=== PATIENT | female | born 1955 | race Caucasian/White ===

== ENCOUNTER → 2017-07-01 | Outpatient (CLI) | payer OTHER ==
[~2017-07-01] MED LIST: APRACLONIDINE 1% 0.1 ML OPH ONE; ASPI-664 PO; LAMO100T83 PO; LEVO75TA5 PO; METO-448 PO; PHENYLephrine 10% 5 ML OPH ONE; PROPARACAINE 0.5% 15 ML OPH ONE; SIMV40TA3 PO; TROPICAMIDE 1% 3 ML OPH ONE; VENL75TA2 PO
== END | disposition home or self-care (01) ==
LOC: RAD 10:32
PROVIDERS: ATTEND Ophthalmology
DX: H26.9 Unspecified cataract (principal)
CPT/HCPCS: 66821; Z7610

== ENCOUNTER 2017-09-17 23:12 | Emergency (ER) | payer SELFPAY ==
[~2017-09-17] VITALS: Ht 165.1 cm; Wt 79.5 kg
[~2017-09-17 23:12] MED LIST changes: -APRACLONIDINE 1% 0.1 ML OPH ONE; -PHENYLephrine 10% 5 ML OPH ONE; -PROPARACAINE 0.5% 15 ML OPH ONE; -TROPICAMIDE 1% 3 ML OPH ONE
[2017-09-17 23:29] VITALS: Ht 165.1 cm; Wt 79.5 kg
== END 2017-09-18 00:25 | disposition left against medical advice (07) ==
LOC: E/R 23:12
DX: Z53.21 Procedure and treatment not carried out due to patient leaving prior to being seen by health care provider (principal)

== ENCOUNTER 2018-11-30 08:16 | Day surgery (SDC) | payer OTHER ==
[2018-11-30] VITALS (14 sets, daily range): BP systolic 111–154; BP diastolic 51–81; PULSE 57–65; RESP 14–23; Ht 154.9 cm; Wt 89.7 kg
[~2018-11-30] VITALS: Ht 154.9 cm; Wt 89.7 kg
[~2018-11-30 08:16] MED LIST changes: +ASPI-1044 PO; -ASPI-664 PO; +CEFAZOLIN 2 GM/50 ML (PMX) 50 ML IVPB SCH; +LIDOCAINE 2% (SDV) 5 ML INJ ONE; +SOD CHLORIDE 0.9% 1,000 ML IV SCH
[2018-11-30] MEDS ORDERED: CALC500T91 PO (08:48)
[2018-11-30] MEDS ORDERED: INSU100I33 SC (08:48)
[2018-11-30] MEDS ORDERED: LEVO75TA5 PO (08:49)
[2018-11-30] MEDS ORDERED: VENL150C PO (08:52)
[2018-11-30] MEDS ORDERED: CHOL100062 PO (08:52)
[2018-11-30] MEDS ORDERED: ASPI-903 PO (08:53)
[2018-11-30] MEDS ORDERED: FAMO20TA18 PO (08:53)
[2018-11-30] MEDS ORDERED: ATOR40TA68 PO (08:54)
[2018-11-30] MEDS ORDERED: LAMO100T83 PO (08:54)
[2018-11-30] MEDS ORDERED: QUET200T PO (08:55)
[2018-11-30] MEDS ORDERED: GABA300C16 PO (08:55)
[2018-11-30] MEDS ORDERED: METO-448 PO (08:56)
[2018-11-30] MEDS ORDERED: LISI-471 PO (08:56)
[2018-11-30] MEDS ORDERED: BUPIVACAINE 0.25% (MPF) 30 ML INJ ONE (09:46)
--- NOTE | 2018-11-30 09:51 | PREAC ---
Date/Time of Note Date/Time of Note DATE: 11/30/18 TIME: 09:48 Anesthesia Eval and Record Evaluation Time Pre-Procedure Interview DATE: 11/30/18 TIME: 09:48 Age 63 Sex female NPO: 8 hrs Preoperative diagnosis cholelithiasis Planned procedure laparoscopic cholecystectomy Past Medical History Past Medical History: Includes Cardio: HTN, Dyslipidemia, CAD Endo: Diabetes Musculoskeletal: Other (fibromyalgia) Renal: CKD GI: GERD, Hiatal hernia Psych: Bipolar Surgery & Anesthesia Issues No known issue Meds Anticoagulation: No Beta Pranav within 24 hr: Yes Reported Medications Metoprolol Tartrate* (Lopressor*) 25 Mg Tab, 25 MG PO BID, #60 TAB 11/30/18 Lisinopril* (Lisinopril*) 20 Mg Tablet, 20 MG PO DAILY, #30 TAB 11/30/18 Quetiapine Fumarate* (Seroquel*) 200 Mg Tablet, 200 MG PO HS, #30 TAB 11/30/18 Gabapentin* (Gabapentin*) 300 Mg Capsule, 300 MG PO BID, #60 CAP 11/30/18 Atorvastatin* (Atorvastatin*) 40 Mg Tablet, 40 MG PO QHS, #30 TAB 11/30/18 Lamotrigine* (Lamictal*) 100 Mg Tablet, 100 MG PO DAILY, TAB 11/30/18 Aspirin* (Aspirin* Chew) 81 Mg Tab.chew, 81 MG PO DAILY, TAB.CHEW 11/30/18 Famotidine* (Famotidine*) 20 Mg Tablet, 20 MG PO DAILY, #30 TAB 11/30/18 Venlafaxine Hcl* (Effexor XR*) 150 Mg Cap.sr.24h, 150 MG PO DAILY, CAP 11/30/18 Cholecalciferol* (Vitamin D3*) 1,000 Unit Tablet, 2000 UNIT PO DAILY, TAB 11/30/18 Levothyroxine Sodium* (Levothyroxine Sodium*) 75 Mcg Tablet, 75 MCG PO BEFORE BREAKFAST, #30 TAB 11/30/18 Insulin Glargine,Hum.rec.anlog (Basaglar Kwikpen U-100) 100 Unit/1 Ml Insuln.pen, 65-80 UNIT SC BID, EA 11/30/18 Calcium Carbonate (Eerw-Xcw-506) 500 Mg Tablet, 500 MG PO BID, TAB 11/30/18 Discontinued Reported Medications Metoprolol Tartrate* (Lopressor*) 25 Mg Tab, 25 MG PO BID, #60 TAB 09/03/16 Aspirin Delayed Release (Aspirin Delayed Release) 81 Mg Tablet.dr, 81 MG PO DAILY 08/05/14 Lamotrigine* (Lamictal*) 100 Mg Tablet, 100 MG PO DAILY, TAB 08/05/14 Simvastatin (Simvastatin) 40 Mg Tablet, 40 MG PO HS, TAB 08/05/14 Levothyroxine Sodium* (Levothyroxine Sodium*) 75 Mcg Tablet, 75 MCG PO AC BREAKFAST, TAB 08/05/14 Venlafaxine Hcl* (Effexor XR*) 75 Mg Tab.er.24, 75 MG PO DAILY, TAB.SA 08/05/14 Current Medications Cefazolin Sodium/ Dextrose 50 ml @ 100 mls/hr PRE-OP IVPB ; Start 11/30/18 at 06:00 Sodium Chloride 1,000 ml @ 75 mls/hr [id number] IV ; Start 11/30/18 at 06:00; Stop 11/30/18 at 18:00 Meds reviewed: Yes Allergies Coded Allergies: No Known Allergies (Verified Allergy, Unknown, 11/30/18) Allergies Reviewed: Yes Labs/Studies Labs Reviewed: Reviewed by anesthesiologist test: N/A Studies: ECG, CXR Pre-procedure Exam Airway: Adequate mouth opening, Adequate thyromental dist Mallampati: Mallampati II Teeth: Normal Lung: Normal Heart: Normal ASA Physical Status ASA physical status: 3 Emergency: None Planned Anesthetic General/MAC: ETT Planned Pain Management Parenteral pain med Pre-operative Attestations Prior to commencing anesthesia and surgery, the patient was re-evaluated, there was verification of: *The patient's identity *The results of appropriate recent lab work and preoperative vital signs *The above evaluation not changing prior to induction *Anesthetic plan, risk benefits, alternative and complications discussed with patient/family; questions answered; patient/family understands, accepts and wishes to proceed. YARELI GUTIERREZ Nov 30, 2018 09:51
[2018-11-30] MEDS ORDERED: PROPOFOL 20 ML ONE (10:05)
[2018-11-30] MEDS ORDERED: CEFAZOLIN 1 GM INJ ONE (10:12)
[2018-11-30] MEDS ORDERED: ROCURONIUM 50 MG INJ ONE (10:12)
[2018-11-30] MEDS ORDERED: DEXAMETHASONE 4 MG/ML 5 ML INJ ONE (10:24)
[2018-11-30] MEDS ORDERED: ONDANSETRON 4 MG INJ ONE ×2 (10:24→11:08)
[2018-11-30] MEDS ORDERED: SUGAMMADEX SODIUM 200 MG/2 ML VIAL IV ONE (10:52)
--- NOTE | 2018-11-30 10:59 | OPR ---
Date/Time of Note Date/Time of Note DATE: 11/30/18 TIME: 10:53 Operative Report Procedure Date: Nov 30, 2018 Preoperative Diagnosis symptomatic gallstones Postoperative Diagnosis same Operation/Procedure Performed 1. laparoscopic cholecystectomy 2. therapeutic injection of subcutaneous local anesthesia Surgeon see signature line Customer Agent none Anesthesia Type: general Estimated Blood Loss: 0 - 10 ml's Transfusion none Specimen gallbladder Grafts/Implants none Complications none Pt Condition Post Procedure: stable Indications This is a 63-year-old female with symptomatic gallstones. She required surgical excision of her gallbladder. Risks alternatives benefits and percent were discussed with the patient. In particular she has had a quadruple bypass and history of LA and she is at moderate cardiac risk. Long discussion was made regarding her cardiac risk. However she is symptomatic and she understands her cardiac risks and agrees to surgery. Potential complications including but not limited to bleeding infection, bile duct injury intra-abdominal organ injury need for open operation need for additional operations were discussed the patient. In particular she expressed understanding regarding her cardiac issues however she consents to the operation due to the symptoms. Procedure Description Patient is taken to the OR and prepped and draped in usual sterile fashion. Surgical time was performed. IV antibiotics were given. Infraumbilical transverse incision was made with a 15 blade. Dissection with cautery was ca rried onto the fascia. The fascia was grasped with [place]'s and divided with curved Roman scissors. 0 Vicryl U stitch was placed into the fascia. Treadwell trocar was introduced. Pneumoperitoneum is established. Midepigastric 12 mm optical trochars placed under direct position. Right upper quadrant upper flank 5 mm optical trochars were placed under direct visualization. Upon initial inspection there is some adhesions to the gallbladder. Additionally the gallbladder was intrahepatic. Initial dome down approach was made to allow mobilization of the gallbladder. The gallbladder was then retracted in a lateral cephalad direction. [place] graspers were used to dissect out the cystic duct and cystic artery. Cystic duct appeared very thickened and short. The critical view was established. Due to the thickened cystic duct the cystic duct was divided with a laparoscopic 35 mm echelon vascular stapler. The cystic artery was divided 3 clips proximal to the distal and the division was performed laparoscopic scissors. The gallbladder was taken of the gallbladder bed. Good hemostasis established. The staple line of the cystic duct was reinforced with additional clips. The gallbladder was retrieved using Endo Catch bag. Ports removed under direct position. 0 Vicryl sutures were tied down. Skin was closed using skin manuel. Therapeutic contains local anesthesia was injected at the incision site. Dry dressings were applied. Nik SALES Nov 30, 2018 10:59
[2018-11-30] MEDS ORDERED: HYDROCODONE/APAP (5/325) TAB PO ONE (11:00)
--- NOTE | 2018-11-30 11:02 | PAC ---
Date/Time of Note Date/Time of Note DATE: 11/30/18 TIME: 11:02 Post-Anesthesia Notes Post-Anesthesia Note Last documented vital signs Vital Signs Date Temp Pulse Resp B/P (MAP) Pulse Ox O2 O2 Flow FiO2 Time Delivery Rate 11/30/18 97.8 57 16 137/64 99 Room Air 1102 (88) Activity: WNL Respiratory function: WNL Cardiovascular function: WNL Mental status: Baseline Pain reasonably controlled: Yes Hydration appropriate: Yes Nausea/Vomiting absent: Yes YARELI GUTIERREZ Nov 30, 2018 11:02
[2018-11-30] MEDS ORDERED: HYDROmorphONE 1 MG/5 ML IV SYRINGE IV ONE (11:07)
[2018-11-30] MEDS ORDERED: MEPERIDINE 25 MG INJ ONE (11:07)
[2018-11-30] MEDS ORDERED: HYDROmorphONE 1 MG/5 ML IV SYRINGE IV PRN ×3 (11:30)
[2018-11-30] MEDS ORDERED: DIPHENHYDRAMINE 50 MG INJ IV PRN (11:30)
[2018-11-30] MEDS ORDERED: FENTAnyl 50 MCG/ML VIAL IV PRN ×3 (11:30)
[2018-11-30] MEDS ORDERED: EPHEDrine SULFATE 50 MG/5 ML SYG IV PRN (11:30)
[2018-11-30] MEDS ORDERED: MIDAZOLAM 1 MG/ML 2 ML INJ IV PRN (11:30)
[2018-11-30] MEDS ORDERED: ONDANSETRON 4 MG INJ IV PRN (11:30)
[2018-11-30] MEDS ORDERED: OXYCODONE/ACETAMINOPHEN (5/325) TAB PO PRN ×2 (11:30)
[2018-11-30] MEDS ORDERED: MEPERIDINE 25 MG INJ IV PRN (11:30)
[2018-11-30] MEDS ORDERED: METOCLOPRAMIDE 10 MG INJ IV PRN (11:30)
[2018-11-30] MEDS ORDERED: hydrALAzine 20 MG INJ IV PRN (11:30)
[2018-11-30] MEDS ORDERED: LABETALOL HCL 20MG INJ IV PRN (11:30)
[2018-11-30] MEDS ORDERED: ALBUTEROL 0.083% (NEB) 2.5 MG/3 ML AMP HHN PRN (11:30)
== END 2018-11-30 12:37 | disposition home or self-care (01) ==
LOC: SDS 08:16
PROVIDERS: ATTEND Surgery
DX: K80.20 Calculus of gallbladder without cholecystitis without obstruction (principal); E11.9 Type 2 diabetes mellitus without complications; I10 Essential (primary) hypertension; E78.5 Hyperlipidemia, unspecified; I25.10 Atherosclerotic heart disease of native coronary artery without angina pectoris; Z79.82 Long term (current) use of aspirin; Z79.4 Long term (current) use of insulin
CPT/HCPCS: 47562; 82962; 88304; J0690; J1100; J1170; J2175; J2405; J3010; Z7512; Z7610

== ENCOUNTER 2018-12-22 14:29 | Inpatient (IN) | payer OTHER ==
[~2018-12-22] VITALS: Ht 154.9 cm; Wt 94.3 kg
[~2018-12-22 14:29] MED LIST changes: -ASPI-1044 PO; +ASPI-903 PO; +ATOR40TA68 PO; +CALC500T91 PO; -CEFAZOLIN 2 GM/50 ML (PMX) 50 ML IVPB SCH; +CHOL100062 PO; +FAMO20TA18 PO; +GABA300C16 PO; +INSU100I33 SC; -LIDOCAINE 2% (SDV) 5 ML INJ ONE; +LISI-471 PO; +QUET200T PO; -SIMV40TA3 PO; -SOD CHLORIDE 0.9% 1,000 ML IV SCH; +VENL150C PO; -VENL75TA2 PO
--- NOTE | 2018-12-22 15:03 | ERD ---
ER Documentation Chief Complaint Chief Complaint PT BIB RA with c/o hypoglycemic episode, BS : 29 HPI 63-year-old female with a history of CAD, CABG, diabetes, CKD, hypertension presenting by ambulance after she had a hypoglycemic episode while at the surgery clinic. Reportedly she was acting strange and bystanders called ambulance. Her blood sugar was reportedly in the 20s. She was given D10 prior to arrival with improvement of her symptoms. Per the patient's sister who is now at bedside, the patient has had at least 3 hypoglycemic episodes this week. Patient states that she does not feel when she is becoming hypoglycemic. She is taking long-acting insulin twice daily and short acting with meals. This morning she used her long-acting insulin but her fasting blood sugar was in the 60s. She ate a bowl of sugary cereal and then also used her regular insulin afterwards without checking her blood sugar. Per the patient's sister, the patient does not eat meals in the morning and waits all day to eat. Currently she is denying any chest pain, headache, shortness of breath, nausea, vomiting, abdominal pain, dysuria. She does complain of generalized weakness for the past few days. She is recently postop from a cholecystectomy. ROS All systems reviewed and are negative except as per history of present illness. Medications Home Meds Reported Medications Biotin (Biotin) 10,000 Mcg Capsule, 16684 MCG PO QAM, CAP 12/22/18 Fenofibrate Nanocrystallized* (Fenofibrate*) 145 Mg Tablet, 145 MG PO DAILY, TAB 12/22/18 Cholecalciferol (Vitamin D3) (Vitamin D-3) 2,000 Unit Tablet, 2000 UNIT PO DAILY, TAB 12/22/18 Omeprazole* (Omeprazole*) 20 Mg Capsule.dr, 20 MG PO DAILY, #30 CAP 12/22/18 Insulin Lispro (Humalog) 100 Unit/1 Ml Cartridge, 18 UNIT SQ TID, EA 12/22/18 Amlodipine Besylate* (Amlodipine Besylate*) 10 Mg Tablet, 10 MG PO DAILY, #30 TAB 12/22/18 Amoxicillin/Potassium Clav (Amox-Clav 875-125 mg Tablet) 875-125 mg Tab, 1 TAB PO BID, #20 TAB TAKE FOR 14 DAYS, START DATE 12/15/18 12/22/18 Metoprolol Tartrate* (Lopressor*) 25 Mg Tab, 25 MG PO BID, #60 TAB 11/30/18 Lisinopril* (Lisinopril*) 20 Mg Tablet, 20 MG PO DAILY, #30 TAB 11/30/18 Quetiapine Fumarate* (Seroquel*) 200 Mg Tablet, 200 MG PO HS, #30 TAB 11/30/18 Gabapentin* (Gabapentin*) 300 Mg Capsule, 600 MG PO BID, #60 CAP 11/30/18 Atorvastatin* (Atorvastatin*) 40 Mg Tablet, 40 MG PO QHS, #30 TAB 11/30/18 Lamotrigine* (Lamictal*) 100 Mg Tablet, 100 MG PO DAILY, TAB 11/30/18 Aspirin* (Aspirin* Chew) 81 Mg Tab.chew, 81 MG PO DAILY, TAB.CHEW 11/30/18 Venlafaxine Hcl* (Effexor XR*) 150 Mg Cap.sr.24h, 150 MG PO DAILY, CAP 11/30/18 Levothyroxine Sodium* (Levothyroxine Sodium*) 75 Mcg Tablet, 75 MCG PO BEFORE BREAKFAST, #30 TAB 11/30/18 Insulin Glargine,Hum.rec.anlog (Basaglar Kwikpen U-100) 100 Unit/1 Ml Insuln.pen, 65 UNIT SC BID, EA 11/30/18 Calcium Carbonate (Pctj-Gch-714) 500 Mg Tablet, 500 MG PO BID, TAB 11/30/18 Discontinued Reported Medications Famotidine* (Famotidine*) 20 Mg Tablet, 20 MG PO DAILY, #30 TAB 11/30/18 Cholecalciferol* (Vitamin D3*) 1,000 Unit Tablet, 2000 UNIT PO DAILY, TAB 11/30/18 Allergies Allergies: Coded Allergies: No Known Allergies (Verified Allergy, Unknown, 12/22/18) PMhx/Soc History of Surgery: Yes (CABG, cataract surgery) Anesthesia Reaction: No Hx Neurological Disorder: No Hx Respiratory Disorders: No Hx Cardiac Disorders: Yes (CAD, HTN) Hx Psychiatric Problems: No Hx Miscellaneous Medical Probl: No Hx Alcohol Use: Yes Hx Substance Use: No Hx Tobacco Use: Yes FmHx Family History: diabetes, coronary disease Physical Exam Vitals Vital Signs Date Temp Pulse Resp B/P (MAP) Pulse Ox O2 O2 Flow FiO2 Time Delivery Rate 12/22/18 98.0 57 16 136/63 99 14:59 (87) Physical Exam Const: No acute distress, well-appearing, nontoxic Head: Atraumatic Eyes: Normal Conjunctiva, PERRLA ENT: Dry mucous membranes. Normal External Ears, Nose and Mouth. Neck: Full range of motion. No meningismus. Resp: Clear to auscultation bilaterally Cardio: Regular rate and rhythm, no murmurs. 2+ distal pulses Abd: Soft, non tender, non distended. Normal bowel sounds Skin: No petechiae or rashes Back: No midline or flank tenderness Ext: No cyanosis, or edema Neur: Awake and alert, oriented x3, normal speech, no facial asymmetry, moving all extremities Psych: Normal Mood and Affect Result Diagram: 12/22/18 1501 12/22/18 1501 Results 24 hrs Laboratory Tests Test 12/22/18 14:54 12/22/18 15:01 12/22/18 15:55 12/22/18 17:13 Bedside Glucose 79 mg/dL 73 mg/dL 100 mg/dL White Blood Count 12.5 10^3/ul Red Blood Count 3.02 10^6/ul Hemoglobin 9.4 g/dl Hematocrit 30.6 % Mean Corpuscular 101.3 fl Volume Mean Corpuscular 31.1 pg Hemoglobin Mean Corpuscular 30.7 g/dl Hemoglobin Concent Red Cell Distribution 13.2 % Width Platelet Count 401 10^3/UL Mean Platelet Volume 11.7 fl Immature Granulocytes 0.600 % % Neutrophils % 75.8 % Lymphocytes % 10.6 % Monocytes % 5.3 % Eosinophils % 7.4 % Basophils % 0.3 % Nucleated Red Blood 0.0 /100WBC Cells % Immature Granulocytes 0.080 10^3/ul # Neutrophils # 9.5 10^3/ul Lymphocytes # 1.3 10^3/ul Monocytes # 0.7 10^3/ul Eosinophils # 0.9 10^3/ul Basophils # 0.0 10^3/ul Nucleated Red Blood 0.0 10^3/ul Cells # Sodium Level 140 mmol/L Potassium Level 5.9 mmol/L Chloride Level 111 mmol/L Carbon Dioxide Level 17 mmol/L Anion Gap 12 Blood Urea Nitrogen 78 mg/dl Creatinine 4.27 mg/dl Est Glomerular Filtrat 11 mL/min Rate mL/min Glucose Level 78 mg/dl Calcium Level 9.1 mg/dl Current Medications Medications Dose Sig/Chandler Start Time Status Last (Trade) Ordered Route PRN Stop Time Admin Dose Reason Admin Sodium 1,000 ml @ Q1H STAT 12/22/18 12/22/18 Chloride 1,000 mls/hr IV 17:41 12/22/18 18:05 18:40 Sodium 30 gm ONCE STAT 12/22/18 DC Polystyrene PO 17:41 12/22/18 Sulfonate 17:43 (Kayexelate 15 Gm Kit (Powder+Sorbi gloria)) Ondansetron 4 mg ER BRIDGE 12/22/18 HCl (Zofran PRN IV 18:00 12/23/18 Inj) NAUSEA/VOMITI 17:59 NG 650 mg ER BRIDGE 12/22/18 Acetaminophen PRN PO 18:00 12/23/18 (Tylenol .MILD PAIN 17:59 Tab) 1-3 OR TEMP Sodium 30 gm ONCE STAT 12/22/18 DC Polystyrene PO 18:03 12/22/18 Sulfonate 18:04 (Kayexalate) Procedures/MDM EMERGENT LABS AND DIAGNOSTIC STUDIES: Lab Results above were reviewed and interpreted by me. CBC: Mild leukocytosis, likely stress reaction. Mild anemia. BMP: Elevated BUN and creatinine with evidence of acidosis and hyperkalemia, concerning for acute renal failure. Glucose within normal limits 12-lead EKG was interpreted by Dixie Glasgow MD: Normal Sinus Rhythm with ventricular rate of 67 beats per minute Normal axis Normal intervals No acute ST or T wave changes suggestive of acute ischemia or STEMI. Initial Nursing notes reviewed. Previous Medical Records requested via the Electronic Health Record. EMERGENCY DEPARTMENT COURSE / MEDICAL DECISION MAKING: Patient is presenting with hypoglycemia, likely secondary to using her insulin both long and short acting and not eating today. Patient was observed in the ER for about 3-1/2 hours with persistent borderline low blood sugars despite Being given meals. Her labs showed evidence of what I think is acute on chronic renal failure given her acute acidosis and hyperkalemia. I do not feel the patient is stable for discharge and will require admission for further workup and management. Hyperkalemia was treated with oral Kayexalate. Insulin was not given due to her persistent hypoglycemia. IV fluids were started. There were no EKG changes consistent with hyperkalemia. Given it is not very severe, at this time I do not want to give her any other medications to lower her hyperkalemia as she may become hypoglycemic again Critical Care Time: 40 minutes Treatments/Evaluations: Close monitoring and treatment of unstable vital signs, cardiorespiratory, and neurologic status, while maintaining tight balance of fluid, respiratory, and cardiac interventions. This time includes discussing the case with the patient and the patients family. This time does not include all procedures stated elsewhere in this record. This time also includes reviewing old records, labs and radiological studies. This time includes examining and re- examining the patient. Additionally, this time also includes arranging care with admitting and consulting physicians. Accepting Care Team: Current data and ongoing care discussed. Time: Time of admission Primary Provider: Dr. Yang Bender Diagnosis: Primary Impression: Hypoglycemia Additional Impressions: Acute renal failure Acute renal failure type: unspecified Qualified Codes: N17.9 - Acute kidn ey failure, unspecified Hyperkalemia Condition: Serious GRETCHEN GLASGOW MD Dec 22, 2018 15:03
[2018-12-22] MEDS ORDERED: AMOX1TAB10 PO (16:28)
[2018-12-22] MEDS ORDERED: AMLO-147 PO (16:30)
[2018-12-22] MEDS ORDERED: INSU100C SQ (16:31)
[2018-12-22] MEDS ORDERED: OMEP20CA16 PO (16:32)
[2018-12-22] MEDS ORDERED: CHOL200056 PO (16:33)
[2018-12-22] MEDS ORDERED: BIOT10005 PO (16:34)
[2018-12-22] MEDS ORDERED: FENO145T37 PO (16:34)
[2018-12-22] MEDS ORDERED: SOD CHLORIDE 0.9% 1,000 ML IV STA (17:41)
[2018-12-22] MEDS ORDERED: SODIUM POLYSTYRENE 15 GM KIT (POWDER + SORBITOL) PO STA (17:41)
[2018-12-22] MEDS ORDERED: ACETAMINOPHEN 325 MG TAB PO PRN ×2 (18:00→18:30)
[2018-12-22] MEDS ORDERED: ONDANSETRON 4 MG INJ IV PRN ×2 (18:00→18:30)
[2018-12-22] MEDS ORDERED: NA POLYST SULFON 15 GM/60 ML BTL PO STA (18:03)
--- NOTE | 2018-12-22 18:13 | HP ---
Date/Time of Note Date/Time of Note DATE: 12/22/18 TIME: 18:13 Assessment/Plan VTE Prophylaxis SCD applied (from Nsg): Yes Pharmacological prophylaxis: NA/contraindicated Pharm contraindication: renal impairment Lines/Catheters IV Catheter Type (from Nrsg): Saline Lock Assessment/Plan Assessment/Plan 1. Acute hypoglycemia - Patient took medications with little PO intake this am - will hold all medications at this time and monitor sugars 2. TAYLOR on CKD - unknown baseline - will consult Nephrology for further recommendations - IVF on board and will add D5 given hypoglycemia - avoid nephrotoxic agents 3. Hyperkalemia - given Kayexalate in ED - no cardiac issues noted - monitor 4. HTN - continue home medications but will hold Lisinopril in setting of TAYLOR/CKD 5. DM - Will check A1c - hold Lantus and Humalog for now. Will restart based on glucose trend and A1c - has outpatient Toxicology Teacher who she does not discuss her diet with. Offered DM education but refused - ISS and accuchecks for now 6. CAD s/p CABG - continue home medications 7. Hypothyroidism - continue levothyroxine 8. Diet - renal 9. Disposition - Admit for monitor for glucose and renal function Result Diagram: 12/22/18 1501 12/22/18 1501 Results 24hrs Laboratory Tests Test 12/22/18 14:54 12/22/18 15:01 12/22/18 15:55 12/22/18 17:13 Bedside Glucose 79 73 100 White Blood Count 12.5 H Red Blood Count 3.02 L Hemoglobin 9.4 L Hematocrit 30.6 L Mean Corpuscular Volume 101.3 H Mean Corpuscular 31.1 Hemoglobin Mean Corpuscular 30.7 L Hemoglobin Concent Red Cell Distribution 13.2 Width Platelet Count 401 Mean Platelet Volume 11.7 H Immature Granulocytes % 0.600 H Neutrophils % 75.8 Lymphocytes % 10.6 L Monocytes % 5.3 Eosinophils % 7.4 H Basophils % 0.3 Nucleated Red Blood 0.0 Cells % Immature Granulocytes # 0.080 H Neutrophils # 9.5 H Lymphocytes # 1.3 Monocytes # 0.7 Eosinophils # 0.9 H Basophils # 0.0 Nucleated Red Blood 0.0 Cells # Sodium Level 140 Potassium Level 5.9 H Chloride Level 111 H Carbon Dioxide Level 17 L Anion Gap 12 Blood Urea Nitrogen 78 H Creatinine 4.27 H Est Glomerular Filtrat 11 L Rate mL/min Glucose Level 78 Calcium Level 9.1 HPI/ROS Admit Date/Time Admit Date/Time 12/22/18 1900 Hx of Present Illness 63 yo F with PMH CAD s/p CABG, CKD, DM, and hypothyroidism presented to ED after experiencing hypoglycemic episode. Patient was leaving Dr. Grubbs office after getting sutures removed and woke up outside, face down on the pavement. She was found with glucose of 29 which improved after given dextrose. Patient states she usually take Lantus 65 units BID and also took Humalog 10 units this am prior to appointment but states she did not eat very much this am. She knows she is not complaint with diet and states she usually administers humalog despite not eating first meal until after 2pm. She admits to not remembering the car ride this am or events following MD appointment. In ED patient glucose improved but was still in the 70s despite eating. She was also found with hyperkalemia and assumed TAYLOR on CKD. Patient follows with a [employer] Engineer [place] and was told to drink more fluids. She is unsure what her baseline creatinine is but says 4 sounds familiar. She admits to her numbers "going up" lately. Patient denies any chest pain, shortness of breath, dizziness, headache, nausea, vomiting, abdominal issues, or urinary issues. ROS All 12 systems reviewed and pertinent positives as per HPI. All others negative. Constitutional: disoriented (resolved); No chills, No nausea Eyes: No discharge ENT: No congestion Respiratory: No pain, No shortness of breath, No sputum, No wheezing Cardiovascular: No chest pain, No edema, No lightheadedness, No palpitations Gastrointestinal: No pain, No constipation, No diarrhea, No nausea, No vomiting Genitourinary: no complaints Musculoskeletal: no complaints Skin: No bruising, No laceration, No rash Neurologic: No confusion, No focal-weakness, No syncope Endocrine: no complaints Lymphatic: no complaints Psychological: nl mood/affect Immunologic: no complaints PMH/Family/Social Past Medical History Medical History: coronary artery disease, diabetes, hypertension, hypothyroid Medications Current Medications Sodium Chloride 1,000 ml @ 1,000 mls/hr Q1H STAT IV Last administered on 12/22/18at 18:05; Admin Dose 1,000 MLS/HR; Start 12/22/18 at 17:41; Stop 12/22/18 at 18:40 Ondansetron HCl (Zofran Inj) 4 mg ER BRIDGE PRN IV NAUSEA/VOMITING; Start 12/22/18 at 18:00; Stop 12/23/18 at 17:59 Acetaminophen (Tylenol Tab) 650 mg ER BRIDGE PRN PO .MILD PAIN 1-3 OR TEMP; Start 12/22/18 at 18:00; Stop 12/23/18 at 17:59 Amlodipine Besylate (Norvasc) 10 mg DAILY PO ; Start 12/23/18 at 09:00; Status UNV Aspirin (Aspirin) 81 mg DAILY PO ; Start 12/23/18 at 09:00; Status UNV Atorvastatin Calcium (Lipitor) 40 mg QHS PO ; Start 12/22/18 at 21:00; Status UNV Calcium Carbonate (Oyster Shell Calcium) 0.5 gm BID PO ; Start 12/22/18 at 21:00; Status UNV Fenofibrate (Tricor) 145 mg DAILY PO ; Start 12/23/18 at 09:00; Status UNV Lamotrigine (Lamictal) 100 mg DAILY PO ; Start 12/23/18 at 09:00; Status UNV Levothyroxine Sodium (Synthroid) 75 mcg BEFORE BREAKFAST PO ; Start 12/23/18 at 07:00; Status UNV Metoprolol Tartrate (Lopressor) 25 mg BID PO ; Start 12/22/18 at 21:00; Status UNV Quetiapine Fumarate (Seroquel) 200 mg HS PO ; Start 12/22/18 at 21:00 Venlafaxine HCl (Effexor Xr) 150 mg DAILY PO ; Start 12/23/18 at 09:00; Status UNV Cholecalciferol (Vitamin D) 2,000 unit DAILY PO ; Start 12/23/18 at 09:00; Status UNV Pantoprazole (Protonix Tab) 40 mg DAILY@06 PO ; Start 12/23/18 at 06:00 Coded Allergies: No Known Allergies (Verified Allergy, Unknown, 12/22/18) Past Surgical History Past Surgical Hx: cholecystectomy, coronary bypass surgery, other (flap on left heel, zohreh right LE) Family History Significant Family History: no pertinent family hx Social History Alcohol Use: occasionally Smoking Status: Current some day smoker Drug Use: none Exam/Review of Systems Vital Signs Vitals Vital Signs Date Temp Pulse Resp B/P (MAP) Pulse Ox O2 O2 Flow FiO2 Time Delivery Rate 12/22/18 71 18 151/60 97 Room Air 18:11 (90) 12/22/18 98.0 14:59 Exam Exam General: Patient is currently lying in bed, no acute distress, in good spirits HEENT: Atraumatic, normocephalic. The pupils are equal, round and reactive. Ext raocular motor are intact Neck: Supple with full range of motion. No rigidity or meningismus Chest: Nontender Lungs: Clear to auscultation bilaterally no crackles rales or wheezing Heart: Normal S1-S2, Regular rhythm and rate. No murmur, S3, or S4 Abdomen: Soft , nontender, nondistended , bowel sounds are present. No guarding no rebound tenderness , No masses or organomegaly. No costovertebral temporal angle mass Extremities: Normal to inspection, no edema no cyanosis Neurologic: Awake, alert, motor and sensory intact. no focal deficits appreciated. Additional Comments Home medications reviewed NELLY BARAJAS MD Dec 22, 2018 18:13
[2018-12-22] MEDS ORDERED: NACL 0.9% 3 ML SYG IV SCH (18:30)
[2018-12-22] MEDS ORDERED: HYDROCODONE/APAP (5/325) TAB PO PRN (18:30)
[2018-12-22] MEDS ORDERED: NITROGLYCERIN (SL) 0.4 MG TAB SL PRN (18:30)
[2018-12-22] MEDS ORDERED: MAGNESIUM HYDROXIDE 30ML CUP PO PRN (18:30)
[2018-12-22] MEDS ORDERED: DOCUSATE SODIUM 100 MG CAP PO PRN (18:30)
[2018-12-22] MEDS ORDERED: GLUCOSE GEL 15 GRAM TUBE BUCCAL PRN (20:00)
[2018-12-22] MEDS ORDERED: GLUCAGON 1 MG INJ IM PRN (20:00)
[2018-12-22] MEDS ORDERED: DEXTROSE 50% 50 ML SYRINGE IV PRN ×2 (20:00)
[2018-12-22] MEDS ORDERED: GLUCOSE GEL 15 GRAM TUBE PO PRN ×2 (20:00)
--- NOTE | 2018-12-22 20:10 | CONS ---
Assessment/Plan Assessment/Plan Assessment/Plan (Daily) 1. Acute hyperkalemia due to TAYLOR 2. Acidosis due to TAYLOR on CKD 3. 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 H/O DM II 5. H/O HTN 6. H/o HL 7. Anemia of CKD IV 8. acute hypoglycemia due to worsening renal failure Plan: US kindey to assess for chronicity of CKD IVF D5 for hypoglycemia Urine studies including urine Na, urine prot/cr ration, Urine eosinophils, CK total, Uric acid Thanks for consultation, I will follow up Consultation Date/Type/Reason Admit Date/Time 12/22/18 190 Date of Consultation: Dec 22, 2018 Type of Consult NEPHROLOGY Reason for Consultation Acute kidney injury on CKD , Acidosis, acute hyperkalemia Requesting Provider: NELLY BARAJAS MD Date/Time of Note DATE: 12/22/18 TIME: 20:09 Hx of Present Illness 63 yo F with PMH CAD s/p CABG, CKD, DM, and hypothyroidism presented to ED after experiencing hypoglycemic episode. Patient was leaving Dr. Grubbs office after getting sutures removed and woke up outside, face down on the pavement. She was found with glucose of 29 which improved after given dextrose.. She was also found with hyperkalemia K 5.9, HCo3 17- pt is unsure about her baselien Cr but says it is around 4- Renal has been consulted for acute hyperkalemia, Acute on chronic renal failure and acidosis Constitutional: disoriented Eyes: no complaints ENT: no complaints Respiratory: no complaints Cardiovascular: no complaints Gastrointestinal: no complaints Genitourinary: no complaints Musculoskeletal: no complaints Skin: no complaints Neurologic: no complaints Endocrine: no complaints Lymphatic: no complaints Psychological: no complaints Immunologic: no complaints Past Medical History Medical History: coronary artery disease, diabetes, high cholesterol, hypertension, hypothyroid, renal disease Home Meds Reported Medications Biotin (Biotin) 10,000 Mcg Capsule, [address] MCG PO QAM, CAP 12/22/18 Fenofibrate Nanocrystallized* (Fenofibrate*) 145 Mg Tablet, 145 MG PO DAILY, TAB 12/22/18 Cholecalciferol (Vitamin D3) (Vitamin D-3) 2,000 Unit Tablet, 2000 UNIT PO DAILY, TAB 12/22/18 Omeprazole* (Omeprazole*) 20 Mg Capsule., 20 MG PO DAILY, #30 CAP 12/22/18 Insulin Lispro (Humalog) 100 Unit/1 Ml Cartridge, 18 UNIT SQ TID, EA 12/22/18 Amlodipine Besylate* (Amlodipine Besylate*) 10 Mg Tablet, 10 MG PO DAILY, #30 TAB 12/22/18 Amoxicillin/Potassium Clav (Amox-Clav 875-125 mg Tablet) 875-125 mg Tab, 1 TAB PO BID, #20 TAB TAKE FOR 14 DAYS, START DATE 12/15/18 12/22/18 Metoprolol Tartrate* (Lopressor*) 25 Mg Tab, 25 MG PO BID, #60 TAB 11/30/18 Lisinopril* (Lisinopril*) 20 Mg Tablet, 20 MG PO DAILY, #30 TAB 11/30/18 Quetiapine Fumarate* (Seroquel*) 200 Mg Tablet, 200 MG PO HS, #30 TAB 11/30/18 Gabapentin* (Gabapentin*) 300 Mg Capsule, 600 MG PO BID, #60 CAP 11/30/18 Atorvastatin* (Atorvastatin*) 40 Mg Tablet, 40 MG PO QHS, #30 TAB 11/30/18 Lamotrigine* (Lamictal*) 100 Mg Tablet, 100 MG PO DAILY, TAB 11/30/18 Aspirin* (Aspirin* Chew) 81 Mg Tab.chew, 81 MG PO DAILY, TAB.CHEW 11/30/18 Venlafaxine Hcl* (Effexor XR*) 150 Mg Cap.sr.24h, 150 MG PO DAILY, CAP 11/30/18 Levothyroxine Sodium* (Levothyroxine Sodium*) 75 Mcg Tablet, 75 MCG PO BEFORE BREAKFAST, #30 TAB 11/30/18 Insulin Glargine,Hum.rec.anlog (Basaglar Kwikpen U-100) 100 Unit/1 Ml Insuln.pen, 65 UNIT SC BID, EA 11/30/18 Calcium Carbonate ([id number]) 500 Mg Tablet, 500 MG PO BID, TAB 11/30/18 Discontinued Reported Medications Famotidine* (Famotidine*) 20 Mg Tablet, 20 MG PO DAILY, #30 TAB 11/30/18 Cholecalciferol* (Vitamin D3*) 1,000 Unit Tablet, 2000 UNIT PO DAILY, TAB 11/30/18 Medications Current Medications Amlodipine Besylate (Norvasc) 10 mg DAILY PO ; Start 12/23/18 at 09:00 Aspirin (Aspirin) 81 mg DAILY PO ; Start 12/23/18 at 09:00 Atorvastatin Calcium (Lipitor) 40 mg QHS PO ; Start 12/22/18 at 21:00 Calcium Carbonate (Oyster Shell Calcium) 1.25 gm BID PO ; Start 12/22/18 at 21:00 Fenofibrate (Tricor) 145 mg DAILY PO ; Start 12/23/18 at 09:00 Lamotrigine (Lamictal) 100 mg DAILY PO ; Start 12/23/18 at 09:00 Levothyroxine Sodium (Synthroid) 75 mcg BEFORE BREAKFAST PO ; Start 12/23/18 at 07:00 Metoprolol Tartrate (Lopressor) 25 mg BID PO ; Start 12/22/18 at 21:00 Quetiapine Fumarate (Seroquel) 200 mg HS PO ; Start 12/22/18 at 21:00 Venlafaxine HCl (Effexor Xr) 150 mg DAILY PO ; Start 12/23/18 at 09:00 Cholecalciferol (Vitamin D) 2,000 unit DAILY PO ; Start 12/23/18 at 09:00 Pantoprazole (Protonix Tab) 40 mg DAILY@06 PO ; Start 12/23/18 at 06:00 Dextrose/Sodium Chloride 1,000 ml @ 75 mls/hr [id number] IV ; Start 12/22/18 at 18:10 IV Flush (NS 3 ml) 3 ml PER PROTOCOL IV ; Start 12/22/18 at 18:30 Ondansetron HCl (Zofran Inj) 4 mg Q6H PRN IV NAUSEA/VOMITING; Start 12/22/18 at 18:30 Nitroglycerin (Nitroglycerin (Sl Tab) 0.4 Mg) 1 tab Q5M PRN SL .CHEST PAIN; Start 12/22/18 at 18:30 Acetaminophen (Tylenol Tab) 650 mg Q6H PRN PO .PAIN 1-3 OR TEMP; Start 12/22/18 at 18:30 Acetaminophen/ Hydrocodone Bitart ([place] (5/325)) 1 tab Q6H PRN PO .PAIN 4-6; Start 12/22/18 at 18:30 Docusate Sodium (Colace) 100 mg Q12H PRN PO .CONSTIPATION; Start 12/22/18 at 18:30 Magnesium Hydroxide (Milk Of Mag) 30 ml DAILY PRN PO .CONSTIPATION; Start 12/22/18 at 18:30 Insulin Aspart (Novolog Insulin Pen) NOVOLOG *MILD* ALGORITHM WITH MEALS BEDTIME SC ; Start 12/22/18 at 21:00 Miscellaneous Information 1 ea NOTE XX ; Start 12/22/18 at 20:00 Glucose (Glutose) 15 gm Q15M PRN PO DECREASED GLUCOSE; Start 12/22/18 at 20:00 Glucose (Glutose) 22.5 gm Q15M PRN PO DECREASED GLUCOSE; Start 12/22/18 at 20:00 Dextrose (D50w Syringe) 25 ml Q15M PRN IV DECREASED GLUCOSE; Start 12/22/18 at 20:00 Dextrose (D50w Syringe) 50 ml Q15M PRN IV DECREASED GLUCOSE; Start 12/22/18 at 20:00 Glucagon (Glucagen) 1 mg Q15M PRN IM DECREASED GLUCOSE; Start 12/22/18 at 20:00 Glucose (Glutose) 15 gm Q15M PRN BUCCAL DECREASED GLUCOSE; Start 12/22/18 at 20:00 Allergies: Coded Allergies: No Known Allergies (Verified Allergy, Unknown, 12/22/18) Past Surgical History Past Surgical Hx: cholecystectomy, coronary bypass surgery, other (flap on left heel, zohreh right LE) Social History Alcohol Use: occasionally Smoking Status: Current some day smoker Drug Use: none Exam/Review of Systems Exam Vitals Vital Signs Date Temp Pulse Resp B/P (MAP) Pulse Ox O2 O2 Flow FiO2 Time Delivery Rate 12/22/18 71 18 151/60 97 Room Air 18:11 (90) 12/22/18 98.0 14:59 Constitutional: alert Head: normocephalic Eyes: nl conjunctiva ENMT: nl external ears & nose Neck: supple, non-tender Respiratory: clear to auscultation, normal air movement, diminished breath sounds Cardiovascular: regular rate and rhythm, nl pulses Gastrointestinal: soft, non-tender Musculoskeletal: nl extremities to inspection Extremities: normal pulses Neurological: [employer] II-XII intact, nl mental status, nl speech, nl strength Skin: nl turgor Lymph: nl lymph nodes Results Result Diagram: 12/22/18 1501 12/22/18 1501 Results 24hrs Laboratory Tests Test 12/22/18 14:54 12/22/18 15:01 12/22/18 15:55 12/22/18 17:13 Bedside Glucose 79 73 100 White Blood Count 12.5 H Red Blood Count 3.02 L Hemoglobin 9.4 L Hematocrit 30.6 L Mean Corpuscular Volume 101.3 H Mean Corpuscular 31.1 Hemoglobin Mean Corpuscular 30.7 L Hemoglobin Concent Red Cell Distribution 13.2 Width Platelet Count 401 Mean Platelet Volume 11.7 H Immature Granulocytes % 0.600 H Neutrophils % 75.8 Lymphocytes % 10.6 L Monocytes % 5.3 Eosinophils % 7.4 H Basophils % 0.3 Nucleated Red Blood 0.0 Cells % Immature Granulocytes # 0.080 H Neutrophils # 9.5 H Lymphocytes # 1.3 Monocytes # 0.7 Eosinophils # 0.9 H Basophils # 0.0 Nucleated Red Blood 0.0 Cells # Sodium Level 140 Potassium Level 5.9 H Chloride Level 111 H Carbon Dioxide Level 17 L Anion Gap 12 Blood Urea Nitrogen 78 H Creatinine 4.27 H Est Glomerular Filtrat 11 L Rate mL/min Glucose Level 78 Hemoglobin A1c 6.8 H Calcium Level 9.1 Test 12/22/18 18:11 12/22/18 19:12 Bedside Glucose 122 108 Medications Medication Current Medications Amlodipine Besylate (Norvasc) 10 mg DAILY PO ; Start 12/23/18 at 09:00 Aspirin (Aspirin) 81 mg DAILY PO ; Start 12/23/18 at 09:00 Atorvastatin Calcium (Lipitor) 40 mg QHS PO ; Start 12/22/18 at 21:00 Calcium Carbonate (Oyster Shell Calcium) 1.25 gm BID PO ; Start 12/22/18 at 21:00 Fenofibrate (Tricor) 145 mg DAILY PO ; Start 12/23/18 at 09:00 Lamotrigine (Lamictal) 100 mg DAILY PO ; Start 12/23/18 at 09:00 Levothyroxine Sodium (Synthroid) 75 mcg BEFORE BREAKFAST PO ; Start 12/23/18 at 07:00 Metoprolol Tartrate (Lopressor) 25 mg BID PO ; Start 12/22/18 at 21:00 Quetiapine Fumarate (Seroquel) 200 mg HS PO ; Start 12/22/18 at 21:00 Venlafaxine HCl (Effexor Xr) 150 mg DAILY PO ; Start 12/23/18 at 09:00 Cholecalciferol (Vitamin D) 2,000 unit DAILY PO ; Start 12/23/18 at 09:00 Pantoprazole (Protonix Tab) 40 mg DAILY@06 PO ; Start 12/23/18 at 06:00 Dextrose/Sodium Chloride 1,000 ml @ 75 mls/hr [id number] IV ; Start 12/22/18 at 18:10 IV Flush (NS 3 ml) 3 ml PER PROTOCOL IV ; Start 12/22/18 at 18:30 Ondansetron HCl (Zofran Inj) 4 mg Q6H PRN IV NAUSEA/VOMITING; Start 12/22/18 at 18:30 Nitroglycerin (Nitroglycerin (Sl Tab) 0.4 Mg) 1 tab Q5M PRN SL .CHEST PAIN; Start 12/22/18 at 18:30 Acetaminophen (Tylenol Tab) 650 mg Q6H PRN PO .PAIN 1-3 OR TEMP; Start 12/22/18 at 18:30 Acetaminophen/ Hydrocodone Bitart ([place] (5/325)) 1 tab Q6H PRN PO .PAIN 4-6; Start 12/22/18 at 18:30 Docusate Sodium (Colace) 100 mg Q12H PRN PO .CONSTIPATION; Start 12/22/18 at 18:30 Magnesium Hydroxide (Milk Of Mag) 30 ml DAILY PRN PO .CONSTIPATION; Start 12/22/18 at 18:30 Insulin Aspart (Novolog Insulin Pen) NOVOLOG *MILD* ALGORITHM WITH MEALS BEDTIME SC ; Start 12/22/18 at 21:00 Miscellaneous Information 1 ea NOTE XX ; Start 12/22/18 at 20:00 Glucose (Glutose) 15 gm Q15M PRN PO DECREASED GLUCOSE; Start 12/22/18 at 20:00 Glucose (Glutose) 22.5 gm Q15M PRN PO DECREASED GLUCOSE; Start 12/22/18 at 20:00 Dextrose (D50w Syringe) 25 ml Q15M PRN IV DECREASED GLUCOSE; Start 12/22/18 at 20:00 Dextrose (D50w Syringe) 50 ml Q15M PRN IV DECREASED GLUCOSE; Start 12/22/18 at 20:00 Glucagon (Glucagen) 1 mg Q15M PRN IM DECREASED GLUCOSE; Start 12/22/18 at 20:00 Glucose (Glutose) 15 gm Q15M PRN BUCCAL DECREASED GLUCOSE; Start 12/22/18 at 20:00 MUSA URBINA MD Dec 22, 2018 20:10
[2018-12-22] MEDS: DEXTROSE 5%-0.45% NACL 1,000 ML IV SCH (20:13)
[2018-12-22] MEDS: INSULIN ASPART [NOVOLOG] 3 ML PEN SC SCH (21:00)
[2018-12-22] MEDS: ATORVASTATIN 40 MG TAB PO SCH (21:33)
[2018-12-22] MEDS: CALCIUM CARBONATE 1.25 GM TAB PO SCH (21:33)
[2018-12-22] MEDS: METOPROLOL 25 MG TAB PO SCH (21:34)
[2018-12-22] MEDS: QUETIAPINE 100 MG TAB PO SCH (21:34)
[2018-12-22 23:00] VITALS: PULSE 82
[2018-12-22 23:05] VITALS: Ht 154.9 cm; Wt 94.3 kg
[2018-12-23] VITALS (9 sets, daily range): BP systolic 131–168; BP diastolic 62–75; PULSE 65–78; RESP 16–20
[2018-12-23] MEDS ORDERED: hydrALAzine 20 MG INJ IV PRN
[2018-12-23] MEDS: PANTOPRAZOLE (EC) 40 MG TAB PO SCH (06:20)
[2018-12-23] MEDS: LEVOTHYROXINE 75 MCG TAB PO SCH (06:20)
[2018-12-23] MEDS: DEXTROSE 5%-0.45% NACL 1,000 ML IV SCH ×2 (07:30→22:01)
[2018-12-23] MEDS: INSULIN ASPART [NOVOLOG] 3 ML PEN SC SCH ×4 (08:00→21:00)
--- NOTE | 2018-12-23 08:39 | PN ---
Date/Time of Note Date/Time of Note DATE: 12/23/18 TIME: 08:39 Assessment/Plan VTE Prophylaxis SCD applied (from Nsg): Yes Pharmacological prophylaxis: NA/contraindicated Pharm contraindication: renal impairment Lines/Catheters IV Catheter Type (from Nrsg): Peripheral IV Urinary Cath still in place: No Assessment/Plan Assessment/Plan 1. Acute hypoglycemia - patient had another episode this am with glucose in 43. All insulin held as well during admission. Will need to continue to monitor for further episodes - DM education consultation placed and discussed d/c insulin and starting PO medication 2. TAYLOR on CKD - unknown baseline - Nephrology consultation appreciated. Renal US results noted - avoid nephrotoxic agents 3. Hyperkalemia - given Kayexalate in ED - no cardiac issues noted - monitor 4. HTN - continue home medications but will hold Lisinopril in setting of TAYLOR/CKD 5. DM - A1c noted - discuss with patient d/c insulin and will start on PO medication - has outpatient [facility] [employer] [facility] who she follows with but planning to leave soon - ISS and accuchecks for now 6. CAD s/p CABG - continue home medications 7. Hypothyroidism - continue levothyroxine 8. Disposition - Will start on Linagliptin and monitor sugars. When no further episodes of hypoglycemia and renal function stable, will d/c home Result Diagram: 12/22/18 1501 12/22/18 1501 Results 24hrs Laboratory Tests Test 12/22/18 14:54 12/22/18 15:01 12/22/18 15:55 12/22/18 17:13 Bedside Glucose 79 73 100 White Blood Count 12.5 H Red Blood Count 3.02 L Hemoglobin 9.4 L Hematocrit 30.6 L Mean Corpuscular Volume 101.3 H Mean Corpuscular 31.1 Hemoglobin Mean Corpuscular 30.7 L Hemoglobin Concent Red Cell Distribution 13.2 Width Platelet Count 401 Mean Platelet Volume 11.7 H Immature Granulocytes % 0.600 H Neutrophils % 75.8 Lymphocytes % 10.6 L Monocytes % 5.3 Eosinophils % 7.4 H Basophils % 0.3 Nucleated Red Blood 0.0 Cells % Immature Granulocytes # 0.080 H Neutrophils # 9.5 H Lymphocytes # 1.3 Monocytes # 0.7 Eosinophils # 0.9 H Basophils # 0.0 Nucleated Red Blood 0.0 Cells # Sodium Level 140 Potassium Level 5.9 H Chloride Level 111 H Carbon Dioxide Level 17 L Anion Gap 12 Blood Urea Nitrogen 78 H Creatinine 4.27 H Est Glomerular Filtrat 11 L Rate mL/min Glucose Level 78 Hemoglobin A1c 6.8 H Calcium Level 9.1 Test 12/22/18 18:11 12/22/18 19:12 12/22/18 20:26 12/22/18 21:22 Bedside Glucose 122 108 88 87 Test 12/23/18 03:00 12/23/18 08:29 Urine Eosinophils % 2.0 H Urine Random Creatinine 73.32 Urine Random Sodium 63 Urine Protein/Creatinine 0.83 Ratio Urine Total Protein 61.0 H Bedside Glucose 43 *L Subjective 24 Hr Interval Summary Free Text/Dictation Patient denies any acute issues. Discussed glucose of 43 this am and concern that with her A1c and high dose of insulin, she is at risk for further episodes of hypoglycemia. Agreeable to seeing DM educator. Exam/Review of Systems Exam Vitals Vital Signs Date Temp Pulse Resp B/P (MAP) Pulse Ox O2 O2 Flow FiO2 Time Delivery Rate 12/23/18 97.9 72 16 136/64 96 07:20 (88) 12/22/18 Room Air 22:19 Intake and Output 12/22/18 12/22/18 12/23/18 1414:59 22:59 06:59 IntakeIntake Total 1025 ml BalanceBalance 1025 ml Exam General: Patient is currently lying in bed, no acute distress, in good spirits Neck: Supple Chest: Nontender Lungs: Clear to auscultation bilaterally no crackles rales or wheezing Heart: Normal S1-S2, Regular rhythm and rate. No murmur, S3, or S4 Abdomen: Soft , nontender, nondistended , bowel sounds are present. No guarding no rebound tenderness Extremities: Normal to inspection, no edema no cyanosis Results Results 24hrs Laboratory Tests Test 12/22/18 14:54 12/22/18 15:01 12/22/18 15:55 12/22/18 17:13 Bedside Glucose 79 73 100 White Blood Count 12.5 H Red Blood Count 3.02 L Hemoglobin 9.4 L Hematocrit 30.6 L Mean Corpuscular Volume 101.3 H Mean Corpuscular 31.1 Hemoglobin Mean Corpuscular 30.7 L Hemoglobin Concent Red Cell Distribution 13.2 Width Platelet Count 401 Mean Platelet Volume 11.7 H Immature Granulocytes % 0.600 H Neutrophils % 75.8 Lymphocytes % 10.6 L Monocytes % 5.3 Eosinophils % 7.4 H Basophils % 0.3 Nucleated Red Blood 0.0 Cells % Immature Granulocytes # 0.080 H Neutrophils # 9.5 H Lymphocytes # 1.3 Monocytes # 0.7 Eosinophils # 0.9 H Basophils # 0.0 Nucleated Red Blood 0.0 Cells # Sodium Level 140 Potassium Level 5.9 H Chloride Level 111 H Carbon Dioxide Level 17 L Anion Gap 12 Blood Urea Nitrogen 78 H Creatinine 4.27 H Est Glomerular Filtrat 11 L Rate mL/min Glucose Level 78 Hemoglobin A1c 6.8 H Calcium Level 9.1 Test 12/22/18 18:11 12/22/18 19:12 12/22/18 20:26 12/22/18 21:22 Bedside Glucose 122 108 88 87 Test 12/23/18 03:00 12/23/18 08:29 Urine Eosinophils % 2.0 H Urine Random Creatinine 73.32 Urine Random Sodium 63 Urine Protein/Creatinine 0.83 Ratio Urine Total Protein 61.0 H Bedside Glucose 43 *L Medications Medication Current Medications Amlodipine Besylate (Norvasc) 10 mg DAILY PO ; Start 12/23/18 at 09:00 Aspirin (Aspirin) 81 mg DAILY PO ; Start 12/23/18 at 09:00 Atorvastatin Calcium (Lipitor) 40 mg QHS PO Last administered on 12/22/18at 21:33; Admin Dose 40 MG; Start 12/22/18 at 21:00 Calcium Carbonate (Oyster Shell Calcium) 1.25 gm BID PO Last administered on 12/22/18at 21:33; Admin Dose 1.25 GM; Start 12/22/18 at 21:00 Fenofibrate (Tricor) 145 mg DAILY PO ; Start 12/23/18 at 09:00 Lamotrigine (Lamictal) 100 mg DAILY PO ; Start 12/23/18 at 09:00 Levothyroxine Sodium (Synthroid) 75 mcg BEFORE BREAKFAST PO Last administered on 12/23/18at 06:20; Admin Dose 75 MCG; Start 12/23/18 at 07:00 Metoprolol Tartrate (Lopressor) 25 mg BID PO Last administered on 12/22/18at 21:34; Admin Dose 25 MG; Start 12/22/18 at 21:00 Quetiapine Fumarate (Seroquel) 200 mg HS PO Last administered on 12/22/18at 21:34; Admin Dose 200 MG; Start 12/22/18 at 21:00 Venlafaxine HCl (Effexor Xr) 150 mg DAILY PO ; Start 12/23/18 at 09:00 Cholecalciferol (Vitamin D) 2,000 unit DAILY PO ; Start 12/23/18 at 09:00 Pantoprazole (Protonix Tab) 40 mg DAILY@06 PO Last administered on 12/23/18at 06:20; Admin Dose 40 MG; Start 12/23/18 at 06:00 Dextrose/Sodium Chloride 1,000 ml @ 75 mls/hr [id number] IV Last administered on 12/22/18at 20:13; Admin Dose 75 MLS/HR; Start 12/22/18 at 18:10 IV Flush (NS 3 ml) 3 ml PER PROTOCOL IV ; Start 12/22/18 at 18:30 Ondansetron HCl (Zofran Inj) 4 mg Q6H PRN IV NAUSEA/VOMITING; Start 12/22/18 at 18:30 Nitroglycerin (Nitroglycerin (Sl Tab) 0.4 Mg) 1 tab Q5M PRN SL .CHEST PAIN; Start 12/22/18 at 18:30 Acetaminophen (Tylenol Tab) 650 mg Q6H PRN PO .PAIN 1-3 OR TEMP; Start 12/22/18 at 18:30 Acetaminophen/ Hydrocodone Bitart ([place] (5/325)) 1 tab Q6H PRN PO .PAIN 4-6; Start 12/22/18 at 18:30 Docusate Sodium (Colace) 100 mg Q12H PRN PO .CONSTIPATION; Start 12/22/18 at 18:30 Magnesium Hydroxide (Milk Of Mag) 30 ml DAILY PRN PO .CONSTIPATION; Start 12/22/18 at 18:30 Insulin Aspart (Novolog Insulin Pen) NOVOLOG *MILD* ALGORITHM WITH MEALS BEDTIME SC ; Start 12/22/18 at 21:00 Miscellaneous Information 1 ea NOTE XX ; Start 12/22/18 at 20:00 Glucose (Glutose) 15 gm Q15M PRN PO DECREASED GLUCOSE; Start 12/22/18 at 20:00 Glucose (Glutose) 22.5 gm Q15M PRN PO DECREASED GLUCOSE; Start 12/22/18 at 20:00 Dextrose (D50w Syringe) 25 ml Q15M PRN IV DECREASED GLUCOSE; Start 12/22/18 at 20:00 Dextrose (D50w Syringe) 50 ml Q15M PRN IV DECREASED GLUCOSE; Start 12/22/18 at 20:00 Glucagon (Glucagen) 1 mg Q15M PRN IM DECREASED GLUCOSE; Start 12/22/18 at 20:00 Glucose (Glutose) 15 gm Q15M PRN BUCCAL DECREASED GLUCOSE; Start 12/22/18 at 20:00 Hydralazine HCl (Apresoline) 10 mg Q4H PRN IV ELEVATED BLOOD PRESSURE; Start 12/23/18 at 00:00 NELLY BARAJAS MD Dec 23, 2018 08:39
[2018-12-23] MEDS: FENOFIBRATE 145 MG TAB PO SCH (08:43)
[2018-12-23] MEDS: VENLAFAXINE (XR) 75 MG CAP PO SCH (08:43)
[2018-12-23] MEDS: CALCIUM CARBONATE 1.25 GM TAB PO SCH ×2 (08:43→21:20)
[2018-12-23] MEDS: ASPIRIN 81 MG TAB PO SCH (08:43)
[2018-12-23] MEDS: METOPROLOL 25 MG TAB PO SCH ×2 (08:44→21:20)
[2018-12-23] MEDS: AMLODIPINE 10 MG TAB PO SCH (08:44)
--- NOTE | 2018-12-23 08:49 | CONS ---
Assessment/Plan Assessment/Plan Assessment/Plan (Daily) 1. Acute hyperkalemia due to TAYLOR 2. Acidosis due to TAYLOR on CKD 3. 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 H/O DM II 5. H/O HTN 6. H/o HL 7. Anemia of CKD IV 8. acute hypoglycemia due to worsening renal failure Plan: BUN/Cr 73/3.87, K 5.3- Kayexalate for hyperkalemia , no current indication for HD at this time. Renal US showed normal size kidneys , echogenicity c/w medical renal disease - Reviewed with radiologist again [id number] at 75 cc/hr will follow up Consultation Date/Type/Reason Admit Date/Time Dec 22, 2018 at 17:46 Initial Consult Date 12/22/18 Type of Consult NEPHROLOGY Requesting Provider: NELLY BARAJAS MD Date/Time of Note DATE: 12/23/18 TIME: 08:49 Exam/Review of Systems Exam Vitals Vital Signs Date Temp Pulse Resp B/P (MAP) Pulse Ox O2 O2 Flow FiO2 Time Delivery Rate 12/23/18 97.9 72 16 136/64 96 07:20 (88) 12/22/18 Room Air 22:19 Intake and Output 12/22/18 12/22/18 12/23/18 1515:00 23:00 07:00 IntakeIntake Total 1025 ml BalanceBalance 1025 ml Results Result Diagram: 12/22/18 1501 12/22/18 1501 Results 24hrs Laboratory Tests Test 12/22/18 14:54 12/22/18 15:01 12/22/18 15:55 12/22/18 17:13 Bedside Glucose 79 73 100 White Blood Count 12.5 H Red Blood Count 3.02 L Hemoglobin 9.4 L Hematocrit 30.6 L Mean Corpuscular Volume 101.3 H Mean Corpuscular 31.1 Hemoglobin Mean Corpuscular 30.7 L Hemoglobin Concent Red Cell Distribution 13.2 Width Platelet Count 401 Mean Platelet Volume 11.7 H Immature Granulocytes % 0.600 H Neutrophils % 75.8 Lymphocytes % 10.6 L Monocytes % 5.3 Eosinophils % 7.4 H Basophils % 0.3 Nucleated Red Blood 0.0 Cells % Immature Granulocytes # 0.080 H Neutrophils # 9.5 H Lymphocytes # 1.3 Monocytes # 0.7 Eosinophils # 0.9 H Basophils # 0.0 Nucleated Red Blood 0.0 Cells # Sodium Level 140 Potassium Level 5.9 H Chloride Level 111 H Carbon Dioxide Level 17 L Anion Gap 12 Blood Urea Nitrogen 78 H Creatinine 4.27 H Est Glomerular Filtrat 11 L Rate mL/min Glucose Level 78 Hemoglobin A1c 6.8 H Calcium Level 9.1 Test 12/22/18 18:11 12/22/18 19:12 12/22/18 20:26 12/22/18 21:22 Bedside Glucose 122 108 88 87 Test 12/23/18 03:00 12/23/18 08:29 Urine Eosinophils % 2.0 H Urine Random Creatinine 73.32 Urine Random Sodium 63 Urine Protein/Creatinine 0.83 Ratio Urine Total Protein 61.0 H Bedside Glucose 43 *L Medications Medication Current Medications Amlodipine Besylate (Norvasc) 10 mg DAILY PO Last administered on 12/23/18 08:44; Admin Dose 10 MG; Start 12/23/18 at 09:00 Aspirin (Aspirin) 81 mg DAILY PO Last administered on 12/23/18 08:43; Admin Dose 81 MG; Start 12/23/18 at 09:00 Atorvastatin Calcium (Lipitor) 40 mg QHS PO Last administered on 12/22/18 21:33; Admin Dose 40 MG; Start 12/22/18 at 21:00 Calcium Carbonate (Oyster Shell Calcium) 1.25 gm BID PO Last administered on 12/23/18 08:43; Admin Dose 1.25 GM; Start 12/22/18 at 21:00 Fenofibrate (Tricor) 145 mg DAILY PO Last administered on 12/23/18 08:43; Admin Dose 145 MG; Start 12/23/18 at 09:00 Lamotrigine (Lamictal) 100 mg DAILY PO ; Start 12/23/18 at 09:00 Levothyroxine Sodium (Synthroid) 75 mcg BEFORE BREAKFAST PO Last administered on 12/23/18 06:20; Admin Dose 75 MCG; Start 12/23/18 at 07:00 Metoprolol Tartrate (Lopressor) 25 mg BID PO Last administered on 12/23/18 08:44; Admin Dose 25 MG; Start 12/22/18 at 21:00 Quetiapine Fumarate (Seroquel) 200 mg HS PO Last administered on 4/2/19at 21:34; Admin Dose 200 MG; Start 12/22/18 at 21:00 Venlafaxine HCl (Effexor Xr) 150 mg DAILY PO Last administered on 12/23/18at 08:43; Admin Dose 150 MG; Start 12/23/18 at 09:00 Cholecalciferol (Vitamin D) 2,000 unit DAILY PO ; Start 12/23/18 at 09:00 Pantoprazole (Protonix Tab) 40 mg DAILY@06 PO Last administered on 12/23/18at 06:20; Admin Dose 40 MG; Start 12/23/18 at 06:00 Dextrose/Sodium Chloride 1,000 ml @ 75 mls/hr [id number] IV Last administered on 12/22/18at 20:13; Admin Dose 75 MLS/HR; Start 12/22/18 at 18:10 IV Flush (NS 3 ml) 3 ml PER PROTOCOL IV ; Start 12/22/18 at 18:30 Ondansetron HCl (Zofran Inj) 4 mg Q6H PRN IV NAUSEA/VOMITING; Start 12/22/18 at 18:30 Nitroglycerin (Nitroglycerin (Sl Tab) 0.4 Mg) 1 tab Q5M PRN SL .CHEST PAIN; Start 12/22/18 at 18:30 Acetaminophen (Tylenol Tab) 650 mg Q6H PRN PO .PAIN 1-3 OR TEMP; Start 12/22/18 at 18:30 Acetaminophen/ Hydrocodone Bitart ([place] (5/325)) 1 tab Q6H PRN PO .PAIN 4-6; Start 12/22/18 at 18:30 Docusate Sodium (Colace) 100 mg Q12H PRN PO .CONSTIPATION; Start 12/22/18 at 18 :30 Magnesium Hydroxide (Milk Of Mag) 30 ml DAILY PRN PO .CONSTIPATION; Start 12/22/18 at 18:30 Insulin Aspart (Novolog Insulin Pen) NOVOLOG *MILD* ALGORITHM WITH MEALS BEDTIME SC ; Start 12/22/18 at 21:00 Miscellaneous Information 1 ea NOTE XX ; Start 12/22/18 at 20:00 Glucose (Glutose) 15 gm Q15M PRN PO DECREASED GLUCOSE; Start 12/22/18 at 20:00 Glucose (Glutose) 22.5 gm Q15M PRN PO DECREASED GLUCOSE; Start 12/22/18 at 20:00 Dextrose (D50w Syringe) 25 ml Q15M PRN IV DECREASED GLUCOSE; Start 12/22/18 at 20:00 Dextrose (D50w Syringe) 50 ml Q15M PRN IV DECREASED GLUCOSE; Start 12/22/18 at 20:00 Glucagon (Glucagen) 1 mg Q15M PRN IM DECREASED GLUCOSE; Start 12/22/18 at 20:00 Glucose (Glutose) 15 gm Q15M PRN BUCCAL DECREASED GLUCOSE; Start 12/22/18 at 20:00 Hydralazine HCl (Apresoline) 10 mg Q4H PRN IV ELEVATED BLOOD PRESSURE; Start 12/23/18 at 00:00 MUSA URBINA MD Dec 23, 2018 08:49
[2018-12-23] MEDS: LAMOTRIGINE 100 MG TAB PO SCH (10:31)
[2018-12-23] MEDS: CHOLECALCIFEROL 2,000 UNIT CAP PO SCH (10:31)
[2018-12-23] MEDS: ATORVASTATIN 40 MG TAB PO SCH (21:20)
[2018-12-23] MEDS: QUETIAPINE 100 MG TAB PO SCH (21:20)
[2018-12-24 02:20] VITALS: BP 134/82; PULSE 65; RESP 20
[2018-12-24] MEDS: LEVOTHYROXINE 75 MCG TAB PO SCH (06:32)
[2018-12-24] MEDS: PANTOPRAZOLE (EC) 40 MG TAB PO SCH (06:32)
[2018-12-24 07:43] VITALS: BP 148/67; PULSE 71; RESP 18
[2018-12-24] MEDS: INSULIN ASPART [NOVOLOG] 3 ML PEN SC SCH ×2 (07:50→13:22)
[2018-12-24] MEDS ORDERED: LINAGLIPTIN 5 MG TABLET PO SCH (09:00)
--- NOTE | 2018-12-24 09:16 | PN ---
Date/Time of Note Date/Time of Note DATE: 12/24/18 TIME: 09:16 Assessment/Plan VTE Prophylaxis Risk score (from Nsg)>0 risk: 5 SCD applied (from Nsg): Yes Pharmacological prophylaxis: NA/contraindicated Pharm contraindication: low risk/ambulating Lines/Catheters IV Catheter Type (from Nrsg): Mid Line Urinary Cath still in place: No Assessment/Plan Assessment/Plan 1. Acute hypoglycemia- resolved - Had a discussion about proper diet and increasing physical therapy. Patient concerned about insulin being d/c since she regulates her sugars on "cheat days" with the insulin. Offered ISS. Will start on Januvia and discussed following up with PCP for DM management if PCP comfortable given she does not get along with her [employer] Supervisor 2. TAYLOR on CKD- improving - unknown baseline - Nephrology consultation appreciated. Renal US results noted - avoid nephrotoxic agents 3. Hyperkalemia- resolved - given Kayexalate in ED - no cardiac issues noted - monitor 4. HTN - continue home medications 5. DM - A1c noted - discuss with patient d/c insulin and will start on PO medication - has outpatient [employer] Super[employer] who she follows with but planning to leave soon - ISS and accuchecks for now 6. CAD s/p CABG - continue home medications 7. Hypothyroidism - continue levothyroxine 8. Disposition - Medically stable for discharge home Result Diagram: 12/24/18 0423 12/24/18 0422 Results 24hrs Laboratory Tests Test 12/23/18 10:27 12/23/18 12:27 12/23/18 17:30 12/23/18 21:01 White Blood Count 8.9 # Red Blood Count 2.77 L Hemoglobin 8.5 L Hematocrit 27.5 L Mean Corpuscular Volume 99.3 Mean Corpuscular 30.7 Hemoglobin Mean Corpuscular 30.9 L Hemoglobin Concent Red Cell Distribution 13.0 Width Platelet Count 353 Mean Platelet Volume 11.5 H Immature Granulocytes % 0.500 H Neutrophils % 63.2 Lymphocytes % 20.5 Monocytes % 8.5 Eosinophils % 7.1 H Basophils % 0.2 Nucleated Red Blood 0.0 Cells % Immature Granulocytes # 0.040 H Neutrophils # 5.6 Lymphocytes # 1.8 Monocytes # 0.8 Eosinophils # 0.6 H Basophils # 0.0 Nucleated Red Blood 0.0 Cells # Sodium Level 143 Potassium Level 5.3 H Chloride Level 112 H Carbon Dioxide Level 21 Anion Gap 10 Blood Urea Nitrogen 73 H Creatinine 3.87 H Est Glomerular Filtrat 12 L Rate mL/min Glucose Level 99 Uric Acid 6.9 Calcium Level 8.8 Magnesium Level 1.9 Total Bilirubin 0.1 L Direct Bilirubin 0.00 Indirect Bilirubin 0.1 Aspartate Amino 45 Transf (AST/SGOT) Alanine 33 Aminotransferase (ALT/SG PT) Alkaline Phosphatase 50 Creatine Kinase 382 H Total Protein 6.6 Albumin 3.7 Globulin 2.90 Albumin/Globulin Ratio 1.27 Bedside Glucose 96 111 175 Test 12/24/18 02:43 12/24/18 04:22 12/24/18 04:23 12/24/18 08:40 Bedside Glucose 134 159 Sodium Level 143 Potassium Level 4.7 Chloride Level 112 H Carbon Dioxide Level 22 Anion Gap 9 Blood Urea Nitrogen 67 H Creatinine 3.69 H Glucose Level 125 Calcium Level 8.7 Phosphorus Level 4.4 Magnesium Level 1.9 Albumin 3.6 White Blood Count 8.7 Red Blood Count 2.71 L Hemoglobin 8.4 L Hematocrit 27.1 L Mean Corpuscular Volume 100.0 Mean Corpuscular 31.0 Hemoglobin Mean Corpuscular 31.0 L Hemoglobin Concent Red Cell Distribution 13.0 Width Platelet Count 334 Mean Platelet Volume 11.8 H Immature Granulocytes % 0.500 H Neutrophils % 52.3 Lymphocytes % 27.5 Monocytes % 8.3 Eosinophils % 10.9 H Basophils % 0.5 Nucleated Red Blood 0.0 Cells % Immature Granulocytes # 0.040 H Neutrophils # 4.5 Lymphocytes # 2.4 Monocytes # 0.7 Eosinophils # 1.0 H Basophils # 0.0 Nucleated Red Blood 0.0 Cells # Subjective 24 Hr Interval Summary Free Text/Dictation Patient is doing well and in no acute distress. denies any dizziness or hypoglycemic events. Exam/Review of Systems Exam Vitals Vital Signs Date Temp Pulse Resp B/P (MAP) Pulse Ox O2 O2 Flow FiO2 Time Delivery Rate 12/24/18 98.6 71 18 148/67 94 Room Air 07:43 (94) Intake and Output 12/23/18 12/23/18 12/24/18 1515:00 23:00 07:00 IntakeIntake Total 1285 ml 525 ml OutputOutput Total 3 ml BalanceBalance 1282 ml 525 ml Exam General: Patient is currently lying in bed, no acute distress Neck: Supple Chest: Nontender Lungs: Clear to auscultation bilaterally no crackles rales or wheezing Heart: Normal S1-S2, Regular rhythm and rate. No murmur, S3, or S4 Abdomen: Soft , nontender, nondistended , bowel sounds are present. No guarding no rebound tenderness Extremities: Normal to inspection, no edema no cyanosis Results Results 24hrs Laboratory Tests Test 12/23/18 10:27 12/23/18 12:27 12/23/18 17:30 12/23/18 21:01 White Blood Count 8.9 # Red Blood Count 2.77 L Hemoglobin 8.5 L Hematocrit 27.5 L Mean Corpuscular Volume 99.3 Mean Corpuscular 30.7 Hemoglobin Mean Corpuscular 30.9 L Hemoglobin Concent Red Cell Distribution 13.0 Width Platelet Count 353 Mean Platelet Volume 11.5 H Immature Granulocytes % 0.500 H Neutrophils % 63.2 Lymphocytes % 20.5 Monocytes % 8.5 Eosinophils % 7.1 H Basophils % 0.2 Nucleated Red Blood 0.0 Cells % Immature Granulocytes # 0.040 H Neutrophils # 5.6 Lymphocytes # 1.8 Monocytes # 0.8 Eosinophils # 0.6 H Basophils # 0.0 Nucleated Red Blood 0.0 Cells # Sodium Level 143 Potassium Level 5.3 H Chloride Level 112 H Carbon Dioxide Level 21 Anion Gap 10 Blood Urea Nitrogen 73 H Creatinine 3.87 H Est Glomerular Filtrat 12 L Rate mL/min Glucose Level 99 Uric Acid 6.9 Calcium Level 8.8 Magnesium Level 1.9 Total Bilirubin 0.1 L Direct Bilirubin 0.00 Indirect Bilirubin 0.1 Aspartate Amino 45 Transf (AST/SGOT) Alanine 33 Aminotransferase (ALT/SG PT) Alkaline Phosphatase 50 Creatine Kinase 382 H Total Protein 6.6 Albumin 3.7 Globulin 2.90 Albumin/Globulin Ratio 1.27 Bedside Glucose 96 111 175 Test 12/24/18 02:43 12/24/18 04:22 12/24/18 04:23 12/24/18 08:40 Bedside Glucose 134 159 Sodium Level 143 Potassium Level 4.7 Chloride Level 112 H Carbon Dioxide Level 22 Anion Gap 9 Blood Urea Nitrogen 67 H Creatinine 3.69 H Glucose Level 125 Calcium Level 8.7 Phosphorus Level 4.4 Magnesium Level 1.9 Albumin 3.6 White Blood Count 8.7 Red Blood Count 2.71 L Hemoglobin 8.4 L Hematocrit 27.1 L Mean Corpuscular Volume 100.0 Mean Corpuscular 31.0 Hemoglobin Mean Corpuscular 31.0 L Hemoglobin Concent Red Cell Distribution 13.0 Width Platelet Count 334 Mean Platelet Volume 11.8 H Immature Granulocytes % 0.500 H Neutrophils % 52.3 Lymphocytes % 27.5 Monocytes % 8.3 Eosinophils % 10.9 H Basophils % 0.5 Nucleated Red Blood 0.0 Cells % Immature Granulocytes # 0.040 H Neutrophils # 4.5 Lymphocytes # 2.4 Monocytes # 0.7 Eosinophils # 1.0 H Basophils # 0.0 Nucleated Red Blood 0.0 Cells # Medications Medication Current Medications Amlodipine Besylate (Norvasc) 10 mg DAILY PO Last administered on 12/23/18 08:44; Admin Dose 10 MG; Start 12/23/18 at 09:00 Aspirin (Aspirin) 81 mg DAILY PO Last administered on 12/23/18 08:43; Admin Dose 81 MG; Start 12/23/18 at 09:00 Atorvastatin Calcium (Lipitor) 40 mg QHS PO Last administered on 12/23/18 21:20; Admin Dose 40 MG; Start 12/22/18 at 21:00 Calcium Carbonate (Oyster Shell Calcium) 1.25 gm BID PO Last administered on 12/23/18 21:20; Admin Dose 1.25 GM; Start 12/22/18 at 21:00 Fenofibrate (Tricor) 145 mg DAILY PO Last administered on 12/23/18 08:43; Admin Dose 145 MG; Start 12/23/18 at 09:00 Lamotrigine (Lamictal) 100 mg DAILY PO Last administered on 12/23/18 10:31; Admin Dose 100 MG; Start 12/23/18 at 09:00 Levothyroxine Sodium (Synthroid) 75 mcg BEFORE BREAKFAST PO Last administered on 12/24/18 06:32; Admin Dose 75 MCG; Start 12/23/18 at 07:00 Metoprolol Tartrate (Lopressor) 25 mg BID PO Last administered on 12/23/18 21:20; Admin Dose 25 MG; Start 12/22/18 at 21:00 Quetiapine Fumarate (Seroquel) 200 mg HS PO Last administered on 12/23/18 21:20; Admin Dose 200 MG; Start 12/22/18 at 21:00 Venlafaxine HCl (Effexor Xr) 150 mg DAILY PO Last administered on 12/23/18at 08:43; Admin Dose 150 MG; Start 12/23/18 at 09:00 Cholecalciferol (Vitamin D) 2,000 unit DAILY PO Last administered on 12/23/18at 10:31; Admin Dose 2,000 UNIT; Start 12/23/18 at 09:00 Pantoprazole (Protonix Tab) 40 mg DAILY@06 PO Last administered on 12/24/18at 06:32; Admin Dose 40 MG; Start 12/23/18 at 06:00 Dextrose/Sodium Chloride 1,000 ml @ 75 mls/hr [id number] IV Last administered on 12/23/18at 22:01; Admin Dose 75 MLS/HR; Start 12/22/18 at 18:10 IV Flush (NS 3 ml) 3 ml PER PROTOCOL IV ; Start 12/22/18 at 18:30 Ondansetron HCl (Zofran Inj) 4 mg Q6H PRN IV NAUSEA/VOMITING; Start 12/22/18 at 18:30 Nitroglycerin (Nitroglycerin (Sl Tab) 0.4 Mg) 1 tab Q5M PRN SL .CHEST PAIN; Start 12/22/18 at 18:30 Acetaminophen (Tylenol Tab) 650 mg Q6H PRN PO .PAIN 1-3 OR TEMP; Start 12/22/18 at 18:30 Acetaminophen/ Hydrocodone Bitart ([place] (5/325)) 1 tab Q6H PRN PO .PAIN 4-6; Start 12/22/18 at 18:30 Docusate Sodium (Colace) 100 mg Q12H PRN PO .CONSTIPATION; Start 12/22/18 at 18:30 Magnesium Hydroxide (Milk Of Mag) 30 ml DAILY PRN PO .CONSTIPATION; Start 12/22/18 at 18:30 Insulin Aspart (Novolog Insulin Pen) NOVOLOG *MILD* ALGORITHM WITH MEALS BEDTIME SC ; Start 12/22/18 at 21:00 Miscellaneous Information 1 ea NOTE XX ; Start 12/22/18 at 20:00 Glucose (Glutose) 15 gm Q15M PRN PO DECREASED GLUCOSE; Start 12/22/18 at 20:00 Glucose (Glutose) 22.5 gm Q15M PRN PO DECREASED GLUCOSE; Start 12/22/18 at 20:00 Dextrose (D50w Syringe) 25 ml Q15M PRN IV DECREASED GLUCOSE; Start 12/22/18 at 20:00 Dextrose (D50w Syringe) 50 ml Q15M PRN IV DECREASED GLUCOSE; Start 12/22/18 at 20:00 Glucagon (Glucagen) 1 mg Q15M PRN IM DECREASED GLUCOSE; Start 12/22/18 at 20:00 Glucose (Glutose) 15 gm Q15M PRN BUCCAL DECREASED GLUCOSE; Start 12/22/18 at 20:00 Hydralazine HCl (Apresoline) 10 mg Q4H PRN IV ELEVATED BLOOD PRESSURE; Start 12/23/18 at 00:00 Linagliptin (Tradjenta) 5 mg DAILY PO ; Start 12/24/18 at 09:00 NELLY BARAJAS MD Dec 24, 2018 09:16
[2018-12-24] MEDS: FENOFIBRATE 145 MG TAB PO SCH (09:54)
[2018-12-24] MEDS: VENLAFAXINE (XR) 75 MG CAP PO SCH (09:56)
[2018-12-24] MEDS: AMLODIPINE 10 MG TAB PO SCH (09:57)
[2018-12-24] MEDS: ASPIRIN 81 MG TAB PO SCH (09:57)
[2018-12-24] MEDS: CALCIUM CARBONATE 1.25 GM TAB PO SCH (09:57)
[2018-12-24] MEDS: METOPROLOL 25 MG TAB PO SCH (09:58)
[2018-12-24] MEDS ORDERED: SITA25TA3 PO (11:08)
[2018-12-24] MEDS ORDERED: GABA300C16 PO (11:08)
--- NOTE | 2018-12-24 11:16 | PDOCDIS ---
Discharge Instructions DIAGNOSIS Discharge Diagnosis 1. Acute hypoglycemia- resolved 2. TAYLOR on CKD- improving 3. Hyperkalemia- resolved 4. HTN 5. DM, A1c 6.8 6. CAD s/p CABG 7. Hypothyroidism CONDITION [id number] Patient Condition: [id number] Stable HOME CARE INSTRUCTIONS: [id number] Diet Instructions: [id number] Low Fat /Cholesterol [id number] Special Diet: [id number] low carb, low sugar diet ACTIVITY: [id number] Activity Restrictions: [id number] No Restrictions FOLLOW UP/APPOINTMENTS Follow-up Plan 1. Follow up with your primary care physician in 1 week 2. I recommend that you discontinue your insulin, bother Lantus and Humalog, given your A1c is 6.8. I recommend you start on Januvia 25 mg daily. If you are experiencing elevated sugars, please follow the sliding scale provided for your Humalog. If you experience persistently low sugars <60 or elevated sugars >300, call your PCP or return to the emergency department 3. Your Gabapentin dose should be decreased to 600mg max daily dose given your kidney function to prevent any further damage. Follow up with your Lead Business Analyst in 2-4 weeks. You last Creatinine while inpatient was 3.69 with BUN 67 4. Continue all other medications as prescribed 5. If experiencing any concerning symptoms, please return to the nearest emergency department Humalog Sliding scale Glucose/ Humalog Units 70-140 , 0 units 141-180, 1 units 181-220, 2 units 221-260, 3 units 261-300, 4 units 301-350, 5 units 350 and above, 7 units NELLY BARAJAS MD Dec 24, 2018 11:16
[2018-12-24] MEDS: CHOLECALCIFEROL 2,000 UNIT CAP PO SCH (12:22)
[2018-12-24] MEDS: LAMOTRIGINE 100 MG TAB PO SCH (12:36)
--- NOTE | 2018-12-24 14:38 | CONS ---
Assessment/Plan Assessment/Plan Assessment/Plan (Daily) 1. Acute hyperkalemia due to TAYLOR 2. Acidosis due to TAYLOR on CKD 3. 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 H/O DM II 5. H/O HTN 6. H/o HL 7. Anemia of CKD IV 8. acute hypoglycemia due to worsening renal failure Plan: BUN/Cr 67/3.69, Kayexalate for hyperkalemia , no current indication for HD at this time. Renal US showed normal size kidneys , echogenicity c/w medical renal disease - Reviewed with radiologist again [id number]/2NS at 75 cc/hr will follow up Consultation Date/Type/Reason Admit Date/Time Dec 22, 2018 at 17:46 Initial Consult Date 12/22/18 Type of Consult NEPHROLOGY Requesting Provider: NELLY BARAJAS MD Date/Time of Note DATE: 12/24/18 TIME: 14:38 Exam/Review of Systems Exam Vitals Vital Signs Date Temp Pulse Resp B/P (MAP) Pulse Ox O2 O2 Flow FiO2 Time Delivery Rate 12/24/18 98.6 71 18 148/67 94 Room Air 07:43 (94) Intake and Output 12/23/18 12/23/18 12/24/18 1515:00 23:00 07:00 IntakeIntake Total 1285 ml 525 ml OutputOutput Total 3 ml BalanceBalance 1282 ml 525 ml Results Result Diagram: 12/24/18 0423 12/24/18 0422 Results 24hrs Laboratory Tests Test 12/23/18 17:30 12/23/18 21:01 12/24/18 02:43 12/24/18 04:22 Bedside Glucose 111 175 134 Sodium Level 143 Potassium Level 4.7 Chloride Level 112 H Carbon Dioxide Level 22 Anion Gap 9 Blood Urea Nitrogen 67 H Creatinine 3.69 H Glucose Level 125 Calcium Level 8.7 Phosphorus Level 4.4 Magnesium Level 1.9 Albumin 3.6 Test 12/24/18 04:23 12/24/18 08:40 12/24/18 10:04 12/24/18 13:07 White Blood Count 8.7 Red Blood Count 2.71 L Hemoglobin 8.4 L Hematocrit 27.1 L Mean Corpuscular Volume 100.0 Mean Corpuscular 31.0 Hemoglobin Mean Corpuscular 31.0 L Hemoglobin Concent Red Cell Distribution 13.0 Width Platelet Count 334 Mean Platelet Volume 11.8 H Immature Granulocytes % 0.500 H Neutrophils % 52.3 Lymphocytes % 27.5 Monocytes % 8.3 Eosinophils % 10.9 H Basophils % 0.5 Nucleated Red Blood 0.0 Cells % Immature Granulocytes # 0.040 H Neutrophils # 4.5 Lymphocytes # 2.4 Monocytes # 0.7 Eosinophils # 1.0 H Basophils # 0.0 Nucleated Red Blood 0.0 Cells # Bedside Glucose 159 197 225 H Medications Medication Current Medications Amlodipine Besylate (Norvasc) 10 mg DAILY PO Last administered on 12/24/18 09:57; Admin Dose 10 MG; Start 12/23/18 at 09:00 Aspirin (Aspirin) 81 mg DAILY PO Last administered on 12/24/18 09:57; Admin Dose 81 MG; Start 12/23/18 at 09:00 Atorvastatin Calcium (Lipitor) 40 mg QHS PO Last administered on 12/23/18 21:20; Admin Dose 40 MG; Start 12/22/18 at 21:00 Calcium Carbonate (Oyster Shell Calcium) 1.25 gm BID PO Last administered on 12/24/18 09:57; Admin Dose 1.25 GM; Start 12/22/18 at 21:00 Fenofibrate (Tricor) 145 mg DAILY PO Last administered on 12/24/18 09:54; Admin Dose 145 MG; Start 12/23/18 at 09:00 Lamotrigine (Lamictal) 100 mg DAILY PO Last administered on 12/24/18 12:36; Admin Dose 100 MG; Start 12/23/18 at 09:00 Levothyroxine Sodium (Synthroid) 75 mcg BEFORE BREAKFAST PO Last administered on 12/24/18 06:32; Admin Dose 75 MCG; Start 12/23/18 at 07:00 Metoprolol Tartrate (Lopressor) 25 mg BID PO Last administered on 12/24/18 09:58; Admin Dose 25 MG; Start 12/22/18 at 21:00 Quetiapine Fumarate (Seroquel) 200 mg HS PO Last administered on 12/23/18 21:20; Admin Dose 200 MG; Start 12/22/18 at 21:00 Venlafaxine HCl (Effexor Xr) 150 mg DAILY PO Last administered on 12/24/18 09:56; Admin Dose 150 MG; Start 12/23/18 at 09:00 Cholecalciferol (Vitamin D) 2,000 unit DAILY PO Last administered on 12/24/18at 12:22; Admin Dose 2,000 UNIT; Start 12/23/18 at 09:00 Pantoprazole (Protonix Tab) 40 mg DAILY@06 PO Last administered on 12/24/18at 06:32; Admin Dose 40 MG; Start 12/23/18 at 06:00 Dextrose/Sodium Chloride 1,000 ml @ 75 mls/hr [id number] IV Last administered on 12/23/18at 22:01; Admin Dose 75 MLS/HR; Start 12/22/18 at 18:10 IV Flush (NS 3 ml) 3 ml PER PROTOCOL IV ; Start 12/22/18 at 18:30 Ondansetron HCl (Zofran Inj) 4 mg Q6H PRN IV NAUSEA/VOMITING; Start 12/22/18 at 18:30 Nitroglycerin (Nitroglycerin (Sl Tab) 0.4 Mg) 1 tab Q5M PRN SL .CHEST PAIN; Start 12/22/18 at 18:30 Acetaminophen (Tylenol Tab) 650 mg Q6H PRN PO .PAIN 1-3 OR TEMP; Start 12/22/18 at 18:30 Acetaminophen/ Hydrocodone Bitart ([place] (5/325)) 1 tab Q6H PRN PO .PAIN 4-6; Start 12/22/18 at 18:30 Docusate Sodium (Colace) 100 mg Q12H PRN PO .CONSTIPATION; Start 12/22/18 at 18:30 Magnesium Hydroxide (Milk Of Mag) 30 ml DAILY PRN PO .CONSTIPATION; Start 12/22/18 at 18:30 Insulin Aspart (Novolog Insulin Pen) NOVOLOG *MILD* ALGORITHM WITH MEALS BEDTIME SC Last administered on 12/24/18at 13:22; Admin Dose 3 UNIT; Start 12/22/18 at 21:00 Miscellaneous Information 1 ea NOTE XX ; Start 12/22/18 at 20:00 Glucose (Glutose) 15 gm Q15M PRN PO DECREASED GLUCOSE; Start 12/22/18 at 20:00 Glucose (Glutose) 22.5 gm Q15M PRN PO DECREASED GLUCOSE; Start 12/22/18 at 20:00 Dextrose (D50w Syringe) 25 ml Q15M PRN IV DECREASED GLUCOSE; Start 12/22/18 at 20:00 Dextrose (D50w Syringe) 50 ml Q15M PRN IV DECREASED GLUCOSE; Start 12/22/18 at 20:00 Glucagon (Glucagen) 1 mg Q15M PRN IM DECREASED GLUCOSE; Start 12/22/18 at 20:00 Glucose (Glutose) 15 gm Q15M PRN BUCCAL DECREASED GLUCOSE; Start 12/22/18 at 20:00 Hydralazine HCl (Apresoline) 10 mg Q4H PRN IV ELEVATED BLOOD PRESSURE; Start 12/23/18 at 00:00 Linagliptin (Tradjenta) 5 mg DAILY PO Last administered on 12/24/18at 09:57; Admin Dose 5 MG; Start 12/24/18 at 09:00 MUSA URBINA MD Dec 24, 2018 14:38
--- NOTE | 2018-12-24 16:24 | DS ---
Date/Time of Note Date/Time of Note DATE: 12/24/18 TIME: 16:14 Discharge Summary Admission/Discharge Info Admit Date/Time Dec 22, 2018 at 17:46 Discharge Date/Time 12/24/18 1615 Discharge Diagnosis 1. Acute hypoglycemia- resolved 2. TAYLOR on CKD- improving 3. Hyperkalemia- resolved 4. HTN 5. DM, A1c 6.8 6. CAD s/p CABG 7. Hypothyroidism Patient Condition: Stable Consults Nephrology- Dr. Mohit Nava Procedures PROCEDURE: US upper extremity Venous. CLINICAL INDICATION: Left arm swelling TECHNIQUE: Multiple sonographic images of the left upper extremity venous system was obtained utilizing grayscale, color-flow, compressive sonography and doppler imaging with augmentation. The images were reviewed on a PACS workstation. COMPARISON: None. FINDINGS: There is normal compressibility and flow within the left internal jugular vein, subclavian vein, axillary vein, brachial, basilic, cephalic, radial and ulnar veins. IMPRESSION: No sonographic evidence for venous thrombosis. .Cj Coronado MD, MD Date Time Electronically viewed and signed by .Cj Coronado MD, MD on 12/23/2018 13:13 PROCEDURE: Renal US. CLINICAL INDICATION: Acute renal failure. TECHNIQUE: Multiple sonographic images of the kidneys were obtained. The images were reviewed on a PACS workstation. COMPARISON: No prior studies are available for comparison. FINDINGS: The right kidney measures 11.1 cm. There is normal renal cortical echogenicity without evidence of hydronephrosis, calculus or mass. There is normal Doppler flow. The left kidney measures 12.0 cm. There is normal renal cortical echogenicity without evidence of hydronephrosis, calculus or mass. There is normal Doppler flow. The bladder is adequately distended without evidence of asymmetric wall thickening or debris. IMPRESSION: 1. Normal sonographic findings of the kidneys and urinary bladder. No evidence of hydronephrosis or renal stones. RPTAT: [facility]AS .Tai Sigmund, MD, MD Date Time Electronically viewed and signed by .Tai Aguilar MD, MD on 12/22/2018 20:28 Hx of Present Illness 63 yo F with PMH CAD s/p CABG, CKD, DM, and hypothyroidism presented to ED after experiencing hypoglycemic episode. Patient was leaving Dr. Grubbs office after getting sutures removed and woke up outside, face down on the pavement. She was found with glucose of 29 which improved after given dextrose. Patient states she usually take Lantus 65 units BID and also took Humalog 10 units this am prior to appointment but states she did not eat very much this am. She knows she is not complaint with diet and states she usually administers humalog despite not eating first meal until after 2pm. She admits to not remembering the car ride this am or events following MD appointment. In ED patient glucose improved but was still in the 70s despite eating. She was also found with hyperkalemia and assumed TAYLOR on CKD. Patient [place] with [place] [facility] [place] and was told to drink more fluids. She is unsure what her baseline creatinine is but says 4 sounds familiar. She admits to her numbers "going up" lately. Patient denies any chest pain, shortness of breath, dizziness, headache, nausea, vomiting, abdominal issues, or urinary issues. Hospital Course Patient was admitted for monitoring of her glucose levels and her insulin was held. Nephrology was consulted as well given findings of TAYLOR on CKD. Renal US was performed with findings consistent with medical disease. Her renal function improved during course of hospitalization. Patients glucose remained stable as well and discussed discontinuing insulin and starting on Januvia which she was agreeable to. Patients presenting symptoms improved significantly and on day of discharge vitals and physical exam were stable. Patient was discharged home in good condition. Home Meds Active Scripts Sitagliptin* (Januvia*) 25 Mg Tablet, 25 MG PO DAILY for 30 Days, #30 TAB 6 Refills Prov:NELLY BARAJAS MD 12/24/18 Gabapentin* (Gabapentin*) 300 Mg Capsule, 600 MG PO DAILY for 30 Days, #30 CAP 6 Refills Prov:NELLY BARAJAS MD 12/24/18 Reported Medications Biotin (Biotin) 10,000 Mcg Capsule, 16683 MCG PO QAM, CAP 12/22/18 Fenofibrate Nanocrystallized* (Fenofibrate*) 145 Mg Tablet, 145 MG PO DAILY, TAB 12/22/18 Cholecalciferol (Vitamin D3) (Vitamin D-3) 2,000 Unit Tablet, 2000 UNIT PO DAILY, TAB 12/22/18 Omeprazole* (Omeprazole*) 20 Mg Capsule.dr, 20 MG PO DAILY, #30 CAP 12/22/18 Amlodipine Besylate* (Amlodipine Besylate*) 10 Mg Tablet, 10 MG PO DAILY, #30 TAB 12/22/18 Amoxicillin/Potassium Clav (Amox-Clav 875-125 mg Tablet) 875-125 mg Tab, 1 TAB PO BID, #20 TAB TAKE FOR 14 DAYS, START DATE 12/15/18 12/22/18 Metoprolol Tartrate* (Lopressor*) 25 Mg Tab, 25 MG PO BID, #60 TAB 11/30/18 Lisinopril* (Lisinopril*) 20 Mg Tablet, 20 MG PO DAILY, #30 TAB 11/30/18 Quetiapine Fumarate* (Seroquel*) 200 Mg Tablet, 200 MG PO HS, #30 TAB 11/30/18 Atorvastatin* (Atorvastatin*) 40 Mg Tablet, 40 MG PO QHS, #30 TAB 11/30/18 Lamotrigine* (Lamictal*) 100 Mg Tablet, 100 MG PO DAILY, TAB 11/30/18 Aspirin* (Aspirin* Chew) 81 Mg Tab.chew, 81 MG PO DAILY, TAB.CHEW 11/30/18 Venlafaxine Hcl* (Effexor XR*) 150 Mg Cap.sr.24h, 150 MG PO DAILY, CAP 11/30/18 Levothyroxine Sodium* (Levothyroxine Sodium*) 75 Mcg Tablet, 75 MCG PO BEFORE BREAKFAST, #30 TAB 11/30/18 Calcium Carbonate (Clts-[id number]) 500 Mg Tablet, 500 MG PO BID, TAB 11/30/18 Discontinued Reported Medications Insulin Lispro (Humalog) 100 Unit/1 Ml Cartridge, 18 UNIT SQ TID, EA 12/22/18 Insulin Glargine,Hum.rec.anlog (Basaglar Kwikpen U-100) 100 Unit/1 Ml Insuln.pen, 65 UNIT SC BID, EA 11/30/18 Famotidine* (Famotidine*) 20 Mg Tablet, 20 MG PO DAILY, #30 TAB 11/30/18 Cholecalciferol* (Vitamin D3*) 1,000 Unit Tablet, 2000 UNIT PO DAILY, TAB 11/30/18 Follow-up Plan 1. Follow up with your primary care physician in 1 week 2. I recommend that you discontinue your insulin, bother Lantus and Humalog, given your A1c is 6.8. I recommend you start on Januvia 25 mg daily. If you are experiencing elevated sugars, please follow the sliding scale provided for your Humalog. If you experience persistently low sugars <60 or elevated sugars >300, call your PCP or return to the emergency department 3. Your Gabapentin dose should be decreased to 600mg max daily dose given your kidney function to prevent any further damage. Follow up with your [facility] in 2-4 weeks. You last Creatinine while inpatient was 3.69 with BUN 67 4. Continue all other medications as prescribed 5. If experiencing any concerning symptoms, please return to the nearest emergency department Humalog Sliding scale Glucose/ Humalog Units 70-140 , 0 units 141-180, 1 units 181-220, 2 units 221-260, 3 units 261-300, 4 units 301-350, 5 units 350 and above, 7 units Primary Care Provider Jay Petit MD Time spent on discharge: > 30 minutes Pending Labs Laboratory Tests Test 12/23/18 17:30 12/23/18 21:01 12/24/18 02:43 12/24/18 04:22 Bedside 111 175 134 Glucose mg/dL (70-220) mg/dL (70-220) mg/dL (70-220) Sodium Level 143 mmol/L (135-14 4) Potassium 4.7 Level mmol/L (3.5-5. 1) Chloride Level 112 mmol/L (97-110 ) Carbon Dioxide 22 Level mmol/L (21-31) Anion Gap 9 (5-13) Blood Urea 67 Nitrogen mg/dl (7-20) Creatinine 3.69 mg/dl (0.44-1. 00) Glucose Level 125 mg/dl (70-220) Calcium Level 8.7 mg/dl (8.4-10. 2) Phosphorus 4.4 Level mg/dl (2.5-4.9 ) Magnesium 1.9 Level mg/dl (1.7-2.5 ) Albumin 3.6 g/dl (3.3-4.9) Test 12/24/18 04:23 12/24/18 08:40 12/24/18 10:04 12/24/18 13:07 White Blood 8.7 Count 10^3/ul (4.8-10 .8) Red Blood 2.71 Count 10^6/ul (4.20-5 .40) Hemoglobin 8.4 g/dl (12.0-16.0 ) Hematocrit 27.1 % (37.0-47.0) Mean 100.0 Corpuscular fl (82.0-101.0) Volume Mean 31.0 Corpuscular pg (29.0-33.0) Hemoglobin Mean 31.0 Corpuscular g/dl (32.0-37.0 Hemoglobin Conc ) ent Red Cell 13.0 Distribution % (11.5-14.5) Width Platelet Count 334 10^3/UL (140-41 5) Mean Platelet 11.8 Volume fl (7.4-10.4) Immature 0.500 Granulocytes % % (0.001-0.429) Neutrophils % 52.3 % (39.0-77.0) Lymphocytes % 27.5 % (15.0-51.0) Monocytes % 8.3 % (0.0-11.0) Eosinophils % 10.9 % (0.0-7.0) Basophils % 0.5 % (0.0-2.0) Nucleated Red 0.0 Blood Cells % /100WBC (0.0-0. 0) Immature 0.040 Granulocytes # 10^3/ul (0.0-0. 031) Neutrophils # 4.5 10^3/ul (1.6-7. 5) Lymphocytes # 2.4 10^3/ul (0.8-2. 9) Monocytes # 0.7 10^3/ul (0.3-0. 9) Eosinophils # 1.0 10^3/ul (0.0-0. 5) Basophils # 0.0 10^3/ul (0.0-0. 1) Nucleated Red 0.0 Blood Cells # 10^3/ul (0.0-0. 0) Bedside 159 197 225 Glucose mg/dL (70-220) mg/dL (70-220) mg/dL (70-220) NELLY BARAJAS MD Dec 24, 2018 16:24
== END 2018-12-24 15:15 | disposition home or self-care (01) | DRG 683 ==
LOC: E/R 14:29 → 6WM 17:46 → MS1 12-23 19:27
PROVIDERS: ADMIT Internal Medicine; ATTEND Internal Medicine
DX: N17.9 Acute kidney failure, unspecified (principal); E87.2 Acidosis; E11.649 Type 2 diabetes mellitus with hypoglycemia without coma; E11.22 Type 2 diabetes mellitus with diabetic chronic kidney disease; I12.9 Hypertensive chronic kidney disease with stage 1 through stage 4 chronic kidney disease, or unspecified chronic kidney disease; N18.4 Chronic kidney disease, stage 4 (severe); I25.10 Atherosclerotic heart disease of native coronary artery without angina pectoris; E03.9 Hypothyroidism, unspecified; F17.200 Nicotine dependence, unspecified, uncomplicated; E11.21 Type 2 diabetes mellitus with diabetic nephropathy; D63.1 Anemia in chronic kidney disease; E78.00 Pure hypercholesterolemia, unspecified; E87.5 Hyperkalemia; Z95.1 Presence of aortocoronary bypass graft; Z79.4 Long term (current) use of insulin; Z79.82 Long term (current) use of aspirin; Z90.49 Acquired absence of other specified parts of digestive tract; Z83.3 Family history of diabetes mellitus
CPT/HCPCS: 36415; 76775; 80048; 80053; 80069; 81003; 82550; 82570; 82962; 83036; 83735; 84300; 84560; 85025; 89190; 93005; 93971; 97161; J1815; J7030; J7042